=== PATIENT | female | born 1955 | race Caucasian/White ===

== ENCOUNTER 2018-01-15 09:34 | Inpatient (IN) | payer BC ==
[2018-01-15] MEDS ORDERED: SODIUM CHLORIDE 0.9% 1000 ML INFUS.BAG IV ONE (10:01)
[2018-01-15 10:34] LABS: BASO % 0.1 % (0-2.0); HEMATOCRIT 33.6 % (32.4-45.2); HEMOGLOBIN 11.1 GM/dL (10.7-15.3); MEAN CELL VOLUME 90.9 fl (80-96); MEAN PLT VOLUME 8.4 fl (7.5-11.1); MONO % 5.6 % (3.8-10.2); NEUT % 90.3 % (42.8-82.8); PLATELET COUNT 208 K/MM3 (134-434); RBC 3.69 M/mm3 (3.60-5.2); WHITE BLOOD COUNT 16.1 K/mm3 (4.0-10.0)
[2018-01-15 10:38] LABS: VENOUS PC02 41.6 mmHg (38-52); VENOUS PH 7.38 (7.32-7.42); VENOUS PO2 22.2 mmHg (28-48)
[2018-01-15 10:50] LABS: INR 1.18 (0.83-1.09); PROTHROMBIN TIME (PATIENT) 13.3 SEC (9.7-13.0)
[2018-01-15 10:52] LABS: ACTIVATED PTT 29.2 SECONDS (25.2-36.5)
[2018-01-15 10:55] LABS: ALK PHOS 83 U/L (45-117); ANION GAP 10 MMOL/L (8-16); BILIRUBIN,TOTAL 0.7 mg/dL (0.2-1.0); BLOOD UREA NITROGEN 54 mg/dL (7-18); CALCIUM 8.2 mg/dL (8.5-10.1); CHLORIDE 96 mmol/L (98-107); CO2 24 mmol/L (21-32); CREATININE 2.6 mg/dL (0.55-1.02); GLUCOSE,RANDOM 132 mg/dL (74-106); POTASSIUM 4.3 mmol/L (3.5-5.1); SGOT/AST 19 U/L (15-37); SGPT/ALT 21 U/L (12-78); SODIUM 130 mmol/L (136-145); TOT PROT 6.5 g/dl (6.4-8.2)
[2018-01-15] MEDS ORDERED: ACETAMINOPHEN 1000 MG/100 ML VIAL (NON FORMULARY) IVPB ONE (11:20)
[2018-01-15] MEDS ORDERED: ACETAMINOPHEN INJECTION 100 ML IVPB ONE (11:23)
--- NOTE | 2018-01-15 12:05 | PDOC ---
History of Present Illness <HemaChas - Last Filed: 01/15/18 14:08> - General History Source: Patient Exam Limitations: No Limitations - History of Present Illness Initial Comments: 01/15/18 12:15 The patient is a 62 year old female with past medical history of hypertension who presents to the ED with complaints of low grade fever, weakness, headache and diffuse body aches for the past 4 days. She denies any associated lightheadedness, dizziness, cough, shortness of breath, chest pain, or urinary complaints. She denies any recent travel. Denies any sick contacts. Allergies: NKDA Social: Denies any drug, alcohol, or tobacco use. PCP: Dr. Welsh <Tamera Kaur - Last Filed: 01/15/18 14:12> - General Chief Complaint: Weakness Stated Complaint: WEAKNESS Time Seen by Provider: 01/15/18 10:08 Past History - Past Medical History COPD: No Diabetes: Yes (PRE-DIABETIC) HTN: Yes Psychiatric Problems: Yes - Suicide/Smoking/Psychosocial Hx Smoking History: Former smoker Have you smoked in the past 12 months: No If you are a former smoker, when did you quit?: 15 YEARS AGO Information on smoking cessation initiated: No Hx Alcohol Use: No Drug/Substance Use Hx: No Substance Use Type: None Hx Substance Use Treatment: No <Chas Garrido - Last Filed: 01/15/18 14:08> <Tamera Kaur - Last Filed: 01/15/18 14:12> - Past Medical History Allergies/Adverse Reactions: Allergies Allergy/AdvReac Type Severity Reaction Status Date / Time No Known Allergies Allergy Verified 01/15/18 09:47 Home Medications: Ambulatory Orders Losartan Potassium [Cozaar -] 25 mg PO DAILY #30 tablet 11/03/14 Quetiapine Fumarate [Seroquel -] 25 mg PO HS #30 tablet 11/04/14 Review of Systems - Review of Systems Constitutional: Yes: Chills, Fever, Night Sweats. No: Unintentional Wgt. Loss HEENTM: No: Ear Pain, Nose Congestion, Throat Pain, Throat Swelling Respiratory: No: Cough, Shortness of Breath Cardiac (ROS): No: Chest Pain ABD/GI: No: Diarrhea, Nausea, Vomiting : Yes: Frequency. No: Burning, Dysuria, Flank Pain, Hematuria Musculoskeletal: Yes: Muscle Pain Integumentary: No: Rash Neurological: No: Headache, Weakness All Other Systems: Reviewed and Negative <Chas Garrido - Last Filed: 01/15/18 14:08> *Physical Exam - Vital Signs Last Vital Signs Temp Pulse Resp BP Pulse Ox 100.3 F H 83 18 100/47 97 01/15/18 10:53 01/15/18 11:14 01/15/18 11:14 01/15/18 11:14 01/15/18 09:39 <Chas Garrido - Last Filed: 01/15/18 14:08> - Vital Signs Last Vital Signs Temp Pulse Resp BP Pulse Ox 100.3 F H 83 18 100/47 97 01/15/18 10:53 01/15/18 11:14 01/15/18 11:14 01/15/18 11:14 01/15/18 09:39 - Physical Exam Comments: 01/15/18 12:15 GENERAL: The patient is awake, alert, and fully oriented, in no acute distress. HEAD: Normal with no signs of trauma. EYES: Pupils equal, round and reactive to light, extraocular movements intact, sclera anicteric, slight left conjunctival discharge, ENT: Ears normal, nares patent, oropharynx clear without exudates. Moist mucous membranes. NECK: Normal range of motion, supple without lymphadenopathy, JVD, or masses. LUNGS: Breath sounds equal, clear to auscultation bilaterally. No wheeze/ crackles. HEART: Regular rate and rhythm, normal S1 and S2 without murmur or rub. ABDOMEN: Soft/nontender/nondistended. BS wnl. No guarding or rebound. No palpable masses. No hepatosplenomegaly. EXTREMITIES: Normal range of motion, no edema. No clubbing or cyanosis. No cords, erythema, or tenderness. NEUROLOGICAL: Cranial nerves II through XII grossly intact. Normal speech, normal gait. PSYCH: Normal mood, normal affect. SKIN: Warm, Dry, normal turgor, no rashes or lesions noted. <VincentTamera - Last Filed: 01/15/18 14:12> Heart Score/ECG Review #1 ECG reviewed & interpreted by me at: 10:12 General ECG Interpretation: Sinus Rhythm, Normal Rate (95), Normal Intervals ( qtc 507, LBBB with QRS 158), No acute ischemic changes Compared to previous ECG there are: No significant change (10/2014) <Chas Garrido - Last Filed: 01/15/18 14:08> ED Treatment Course - LABORATORY CBC & Chemistry Diagram: 01/15/18 10:05 01/15/18 10:05 - ADDITIONAL ORDERS Additional order review: Laboratory Results 01/15/18 01/15/18 01/15/18 10:05 10:05 10:05 PT with INR INR PTT (Actin FS) VBG pH POC VBG pCO2 POC VBG pO2 Mixed VBG HCO3 Sodium 130 L Potassium 4.3 Chloride 96 L Carbon Dioxide 24 Anion Gap 10 BUN 54 H Creatinine 2.6 H Creat Clearance w eGFR 18.53 Random Glucose 132 H Lactic Acid 1.6 Calcium 8.2 L Total Bilirubin 0.7 AST 19 ALT 21 Alkaline Phosphatase 83 Troponin I Cancelled < 0.02 Total Protein 6.5 Albumin 3.0 L 01/15/18 01/15/18 10:05 10:05 PT with INR 13.30 H INR 1.18 H PTT (Actin FS) 29.2 VBG pH 7.38 POC VBG pCO2 41.6 POC VBG pO2 22.2 L Mixed VBG HCO3 23.7 Sodium Potassium Chloride Carbon Dioxide Anion Gap BUN Creatinine Creat Clearance w eGFR Random Glucose Lactic Acid Calcium Total Bilirubin AST ALT Alkaline Phosphatase Troponin I Total Protein Albumin 01/15/18 10:05 RBC 3.69 MCV 90.9 MCHC 33.0 RDW 15.0 MPV 8.4 Neutrophils % 90.3 H Lymphocytes % 4.0 L D Monocytes % 5.6 Eosinophils % 0.0 D Basophils % 0.1 - Medications Given in the ED: ED Medications Discontinued Medications Generic Name Dose Route Start Last Admin Trade Name Freq PRN Reason Stop Dose Admin Acetaminophen 1,000 mg 01/15/18 11:20 01/15/18 11:26 Ofirmev Injection - IVPB 01/15/18 11:21 1,000 mg ONCE ONE Administration Sodium Chloride 2,000 ml 01/15/18 10:01 01/15/18 10:31 Normal Saline - IV 01/15/18 10:02 2,000 ml ONCE ONE Administration <Chas Garrido - Last Filed: 01/15/18 14:08> - LABORATORY CBC & Chemistry Diagram: 01/15/18 10:05 01/15/18 10:05 - ADDITIONAL ORDERS Additional order review: Laboratory Results 01/15/18 01/15/18 01/15/18 10:05 10:05 10:05 PT with INR INR PTT (Actin FS) VBG pH POC VBG pCO2 POC VBG pO2 Mixed VBG HCO3 Sodium 130 L Potassium 4.3 Chloride 96 L Carbon Dioxide 24 Anion Gap 10 BUN 54 H Creatinine 2.6 H Creat Clearance w eGFR 18.53 Random Glucose 132 H Lactic Acid 1.6 Calcium 8.2 L Total Bilirubin 0.7 AST 19 ALT 21 Alkaline Phosphatase 83 Troponin I Cancelled < 0.02 Total Protein 6.5 Albumin 3.0 L 01/15/18 01/15/18 10:05 10:05 PT with INR 13.30 H INR 1.18 H PTT (Actin FS) 29.2 VBG pH 7.38 POC VBG pCO2 41.6 POC VBG pO2 22.2 L Mixed VBG HCO3 23.7 Sodium Potassium Chloride Carbon Dioxide Anion Gap BUN Creatinine Creat Clearance w eGFR Random Glucose Lactic Acid Calcium Total Bilirubin AST ALT Alkaline Phosphatase Troponin I Total Protein Albumin 01/15/18 10:05 RBC 3.69 MCV 90.9 MCHC 33.0 RDW 15.0 MPV 8.4 Neutrophils % 90.3 H Lymphocytes % 4.0 L D Monocytes % 5.6 Eosinophils % 0.0 D Basophils % 0.1 - RADIOLOGY Radiograph Interpretation: 01/15/18 12:45 Chest x-ray as reviewed by Dr. Campbell reports poor inspiratory effort, possible mild cardiomegaly, no acute intrathoracic abnormality seen. - Medications Given in the ED: ED Medications Discontinued Medications Generic Name Dose Route Start Last Admin Trade Name Freq PRN Reason Stop Dose Admin Acetaminophen 1,000 mg 01/15/18 11:20 01/15/18 11:26 Ofirmev Injection - IVPB 01/15/18 11:21 1,000 mg ONCE ONE Administration Sodium Chloride 2,000 ml 01/15/18 10:01 01/15/18 10:31 Normal Saline - IV 01/15/18 10:02 2,000 ml ONCE ONE Administration <Tamera Kaur - Last Filed: 01/15/18 14:12> Medical Decision Making - Critical Care Time Total Critical Care Time (minutes): 30 Critical Care Statement: The care of this patient involved high complexity decision making to prevent further life threatening deterioration of the patient 's condition and/or to evaluate & treat vital organ system(s) failure or risk of failure. - Medical Decision Making 01/15/18 12:07 A portion of this note was documented by scribe services under my direction. I have reviewed the details of the note, within reason, and agree with the documentation with the following case summary and management plan written by me. 62-year-old female with history of hypertension presents with four-day complaint of myalgias, fevers/chills, generalized weakness. No focal pain or complaints, no recent travel, no rashes noted, no sick contacts. Low-grade temp of 100.3, vital signs are otherwise normal Generally well-appearing and in no distress, small left conjunctival discharge without erythema or swelling Heart is regular without murmurs, lungs are clear Abdomen benign Neurologically intact without edema No rash, no lymphadenopathy, neck is supple oropharynx is clear 62-year-old female with nonspecific myalgia and fever/chills symptoms for 4 days. No findings consistent with bacterial or focal process, question viral possible influenza. Rule out UTI. Sepsis protocol initiated EKG, chest x-ray IV fluids and Tylenol Flu swab Reassess 01/15/18 12:56 wbc 16 with left shift, hypo-Na, Cl with LUIS ALBERTO on chem, UA pending, CXR clear, flu pending. Proceed with iv fluids, abx pending UA. 01/15/18 13:49 Pt BP went to 80 systolic, improved with normal saline bolus. UA cloudy on straight cath and potential source of infection. Flu negative. Continues to feel weak but well overall, covered empirically with vanc/zosyn for sepsis, accepted for inpatient med/surg by Dr. Justice, covering Dr. Welsh. 01/15/18 14:08 lactate 1.6, UA with 3+ leuk <Chas Garrido - Last Filed: 01/15/18 14:08> - Medical Decision Making 01/15/18 14:[address] to Dr[address] Jhony Justice, case was discussed. Patient will be admitted. <Tamera Kaur - Last Filed: 01/15/18 14:12> *DC/Admit/Observation/Transfer - Discharge Dispostion Decision to Admit order: Yes <Chas Garrido - Last Filed: 01/15/18 14:08> - Attestations Scribe Attestion: 01/15/18 12:16 Documentation prepared by Tamera Kaur, acting as hospital medical assistant for Chas Garrido MD. <Tamera Kaur - Last Filed: 01/15/18 14:12> Diagnosis at time of Disposition: Myalgia Sepsis Qualifiers: Sepsis type: sepsis due to unspecified organism Qualified Code(s): A41.9 - Sepsis, unspecified organism - Discharge Dispostion Condition at time of disposition: Fair - Referrals Referrals: Alfredo Welsh MD [Primary Care Provider] - - Patient Instructions - Post Discharge Activity
[2018-01-15] MEDS ORDERED: SODIUM CHLORIDE 1,000 ML IV ONE ×2 (13:19→14:46)
[2018-01-15] MEDS ORDERED: VANCOMYCIN 1,000 MG in DEXTROSE 5%-WATER - 250 ML IVPB ONE (13:20)
[2018-01-15] MEDS ORDERED: PIPERACILLIN/TAZOB 4.5 GM 4.5 GM in DEXTROSE 5%-WATER 100 ML IVPB ONE (13:20)
[2018-01-15] MEDS ORDERED: PIPERACILLIN/TAZOB 4.5 GM 4.5 GM/100 ML BAG IVPB ONE (13:47)
[2018-01-15] MEDS ORDERED: VANCOMYCIN 1 GRAM (PRE-DOCKED) 1,000 MG/250 ML BAG IVPB ONE (13:47)
[2018-01-15 14:00] LABS: URINE APPEARANCE CLOUDY; URINE BILIRUBIN NEGATIVE (<2.0 mg/dL); URINE COLOR YELLOW; URINE GLUCOSE (UA) NEGATIVE (NEGATIVE); URINE KETONE NEGATIVE (NEGATIVE); URINE NITRITE NEGATIVE (NEGATIVE); URINE UROBILINOGEN NEGATIVE mg/dL (0.2-1.0)
[2018-01-15 14:03] LABS: URINE LEUK ESTERASE 3+ (NEGATIVE); URINE PROTEIN 2+ (NEGATIVE)
[2018-01-15 14:12] LABS: ANISOCYTOSIS 1+; MACROCYTOSIS 0; PLATELET ESTIMATE NORMAL
[2018-01-15 14:34] LABS: EPI CELLS RARE /HPF (FEW); URINE BACTERIA MANY /hpf (NONE SEEN); URINE MUCUS RARE
[2018-01-15 14:43] LABS: URINE HYALINE CAST 13 /lpf
[2018-01-15] MEDS ORDERED: SODIUM CHLORIDE 1,000 ML IV STA (14:45)
--- NOTE | 2018-01-15 15:47 | EKG ---
Test Reason : Blood Pressure : / mmHG Vent. Rate : 095 BPM Atrial Rate : 095 BPM P-R Int : 142 ms QRS Dur : 158 ms QT Int : 404 ms P-R-T Axes : 029 -38 129 degrees QTc Int : 507 ms POOR DATA QUALITY, INTERPRETATION MAY BE ADVERSELY AFFECTED NORMAL SINUS RHYTHM LEFT AXIS DEVIATION LEFT BUNDLE BRANCH BLOCK ABNORMAL ECG WHEN COMPARED WITH ECG OF 02-NOV-2014 09:44, VENT. RATE HAS INCREASED BY 36 BPM T WAVE INVERSION LESS EVIDENT IN LATERAL LEADS Confirmed by COLIN CASTILLO MD ([id number]) on 01/15/2018 3:46:34 PM Referred By: Confirmed By:COLIN CASTILLO MD
[2018-01-15 17:57] VITALS: BMI 32.9
[2018-01-15] MEDS ORDERED: cefTRIAXone SODIUM 1 GM VIAL ONE (18:50)
[2018-01-15] MEDS ORDERED: DEXTROSE 5%-WATER 100 ML IVPB ONE (18:50)
[2018-01-15] MEDS ORDERED: CEFTRIAXONE 1 GM in DEXTROSE 5%-WATER 100 ML IVPB SCH (19:00)
[2018-01-15] MEDS: SODIUM CHLORIDE 1,000 ML IV SCH (19:20)
[2018-01-15] MEDS: ACETAMINOPHEN 325 MG TABLET (FP) PO PRN (19:21)
[2018-01-15] MEDS: HEPARIN NA (PORCINE) 5,000 UNITS/ML 1ML VIAL SQ SCH (21:24)
[2018-01-15] MEDS ORDERED: QUEtiapine FUMARATE 25 MG TABLET (FP) PO SCH (22:00)
[2018-01-16] MEDS: SODIUM CHLORIDE 1,000 ML IV SCH (06:41)
[2018-01-16] MEDS: ACETAMINOPHEN 325 MG TABLET (FP) PO PRN ×2 (07:46→17:57)
[2018-01-16 08:33] LABS: BASO % 0.2 % (0-2.0); EOS % 0.8 % (0-4.5); HEMATOCRIT 29.8 % (32.4-45.2); HEMOGLOBIN 9.8 GM/dL (10.7-15.3); LYMPH % 5.3 % (8-40); MCH 30.2 pg (25.7-33.7); MCHC 32.7 g/dl (32.0-36.0); MEAN CELL VOLUME 92.3 fl (80-96); MEAN PLT VOLUME 8.8 fl (7.5-11.1); MONO % 3.6 % (3.8-10.2); NEUT % 90.1 % (42.8-82.8); PLATELET COUNT 156 K/MM3 (134-434); RBC 3.23 M/mm3 (3.60-5.2); WHITE BLOOD COUNT 19.6 K/mm3 (4.0-10.0)
[2018-01-16] MEDS ORDERED: PIPERACILLIN/TAZOB 2.25 GM 2.25 GM in DEXTROSE 5%-WATER - 50 ML IVPB ONE (08:49)
[2018-01-16 08:56] LABS: CHLORIDE 114 mmol/L (98-107); SODIUM 145 mmol/L (136-145)
[2018-01-16 09:03] LABS: ALK PHOS 105 U/L (45-117); ANION GAP 10 MMOL/L (8-16); BILIRUBIN,TOTAL 0.9 mg/dL (0.2-1.0); BLOOD UREA NITROGEN 39 mg/dL (7-18); CALCIUM 7.3 mg/dL (8.5-10.1); CO2 21 mmol/L (21-32); CREATININE 1.5 mg/dL (0.55-1.02); GLUCOSE,RANDOM 94 mg/dL (74-106); SGOT/AST 29 U/L (15-37); SGPT/ALT 22 U/L (12-78)
--- NOTE | 2018-01-16 10:59 | CON.ID ---
Consult Consult Specialty:: infectious diseases Referred by:: Reason for Consultation:: gm positive bacteremia,uti - History of Present Illness Chief Complaint: werakness,fever History of Present Illness: 62 year old female with past medical history of hypertension and admitted with complaints of low grade fever, weakness, headache and diffuse body aches for the past 4 days. patient denies any other symptoms patient was admitted currently feels very weak and was worked up patient was given vanco and zosyn and admitted to the floor on her work up patient now has blood cx positive as well as urine cx positive - History Source History Provided By: Patient, Medical Record Limitations to Obtaining History: Language Barrier - Past Medical History [employer]ING [employer]MENT: Yes: Migraine Cardio/Vascular: Yes: HTN ...: No Rheumatology: Yes: Other (osteoarthritis) - Alcohol/Substance Use Hx Alcohol Use: No - Smoking History Smoking history: Former smoker Have you smoked in the past 12 months: No If you are a former smoker, when did you quit?: 15 YEARS AGO - Social History Usual Living Arrangement: With Spouse ADL: Independent History of Recent Travel: No Home Medications - Allergies Allergies/Adverse Reactions: Allergies Allergy/AdvReac Type Severity Reaction Status Date / Time No Known Allergies Allergy Verified 01/15/18 09:47 - Home Medications Home Medications: Ambulatory Orders Losartan Potassium [Cozaar -] 25 mg PO DAILY #30 tablet 11/03/14 Quetiapine Fumarate [Seroquel -] 25 mg PO HS #30 tablet 11/04/14 Review of Systems - Review of Systems Constitutional: reports: Fever Eyes: reports: No Symptoms HENT: reports: No Symptoms Neck: reports: No Symptoms Cardiovascular: reports: No Symptoms Respiratory: reports: No Symptoms Gastrointestinal: reports: No Symptoms Genitourinary: reports: No Symptoms Musculoskeletal: reports: No Symptoms Integumentary: reports: No Symptoms Neurological: reports: No Symptoms Endocrine: reports: No Symptoms Hematology/Lymphatic: reports: No Symptoms Psychiatric: reports: No Symptoms Physical Exam Vital Signs: Vital Signs Temperature 98.0 F 01/16/18 09:00 Pulse Rate 75 01/16/18 09:00 Respiratory Rate 17 01/16/18 09:00 Blood Pressure 92/52 01/16/18 09:00 O2 Sat by Pulse Oximetry (%) 100 01/15/18 21:00 Constitutional: Yes: Well Nourished, Calm, Mild Distress Cardiovascular: Yes: Regular Rate and Rhythm Respiratory: Yes: Regular, CTA Bilaterally Gastrointestinal: Yes: Normal Bowel Sounds, Soft Musculoskeletal: Yes: WNL Extremities: Yes: Other Neurological: Yes: Alert, Oriented Psychiatric: Yes: Alert, Oriented Labs: CBC, BMP 01/16/18 08:00 01/16/18 08:00 Imaging - Results Chest X-ray: Report Reviewed, Image Reviewed Assessment/Plan fever weakness uti gm negative bacteremia plan will continue zosyn on the patient will repeat blood cx tomorrow await for identification of the organism rest as per the team
[2018-01-16] MEDS: HEPARIN NA (PORCINE) 5,000 UNITS/ML 1ML VIAL SQ SCH ×2 (11:00→21:32)
--- NOTE | 2018-01-16 11:16 | HP ---
Admitting History and Physical - Primary Care Physician PCP: Alfredo Welsh - Admission History of Present Illness: patient 62-year-old old female admitted to the hospital--when she presented to emergency room secondary to fever and weakness Workup in the emergency room--showed sepsis--likely source Given broad-spectrum antibiotics vancomycin and Zosyn and fluids due to hypotension. patient also found in acute renal failure--- given fluids Ultrasound kidneys also ordered Admitted to the floor Patient seen today on the floor Sitting in the chair feels better but little weak No distress Continued to have low-grade fever Denies chest pain or shortness of breath Denies abdominal pain Denies burning in the urine blood culture and urine culture--- positive for gram-negative bacteremia. patient speaks mainly specialists in [place]--- history taken with the help of nursing staff also I also called patient's pharmacy--- [facility] Patient takes following medications Seroquel--100 mg daily--- patient states not taking anymore nortriptyline--25 mg daily meloxicam--15 mg nadolol 40 mg daily. patient not taking Cozaar. 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 Cardiovascular: Yes: HTN ...: No Rheumatology: Yes: Other (osteoarthritis) - Smoking History Smoking history: Former smoker Have you smoked in the past 12 months: No If you are a former smoker, when did you quit?: 15 YEARS AGO - Alcohol/Substance Use Hx Alcohol Use: No - Social History ADL: Independent History of Recent Travel: No Home Medications - Allergies Allergies/Adverse Reactions: Allergies Allergy/AdvReac Type Severity Reaction Status Date / Time No Known Allergies Allergy Verified 01/15/18 09:47 - Home Medications Home Medications: Ambulatory Orders Losartan Potassium [Cozaar -] 25 mg PO DAILY #30 tablet 11/03/14 Quetiapine Fumarate [Seroquel -] 25 mg PO HS #30 tablet 11/04/14 Family Disease History - Family Disease History Family History: Unremarkable Review of Systems Findings/Remarks: see [place] - Review of Systems Constitutional: reports: Fever, Weakness Eyes: reports: No Symptoms Physical Examination Vital Signs: Vital Signs Temperature 98.0 F 01/16/18 09:00 Pulse Rate 75 01/16/18 09:00 Respiratory Rate 17 01/16/18 09:00 Blood Pressure 92/52 01/16/18 09:00 O2 Sat by Pulse Oximetry (%) 100 01/15/18 21:00 Constitutional: Yes: No Distress Eyes: Yes: Conjunctiva Clear Neck: Yes: Supple Cardiovascular: Yes: Regular Rate and Rhythm Respiratory: Yes: CTA Bilaterally Gastrointestinal: Yes: Soft Edema: No Neurological: Yes: Alert Psychiatric: Yes: Alert Labs: CBC, BMP 01/16/18 08:00 01/16/18 08:00 Imaging - Results EKG: Report Reviewed Problem List - Problems (1) Sepsis Code(s): A41.9 - SEPSIS, UNSPECIFIED ORGANISM (2) Hypotension Code(s): I95.9 - HYPOTENSION, UNSPECIFIED (3) Acute renal failure Code(s): N17.9 - ACUTE KIDNEY FAILURE, UNSPECIFIED Assessment/Plan gram-negative bacteremia Continue antibiotics--Zosyn and continue fluids follow-up labs Kidney function improved Hold meloxicam Holding nadalol Will follow Discussed with ID also
[2018-01-16] MEDS ORDERED: DEXTROSE 5%-WATER - 50 ML IVPB ONE ×2 (11:17→17:56)
[2018-01-16] MEDS: PIPERACILLIN/TAZOB 3.375 GM 3.375 GM in DEXTROSE 5%-WATER - 50 ML IVPB SCH ×2 (11:17→17:56)
[2018-01-16] MEDS ORDERED: PIPERACILLIN/TAZOBACTAM 3.375 GM VIAL IVPB ONE ×2 (11:17→17:56)
[2018-01-16 11:37] LABS: ANISOCYTOSIS 1+; MACROCYTOSIS 0; PLATELET ESTIMATE NORMAL
[2018-01-17] MEDS: ACETAMINOPHEN 325 MG TABLET (FP) PO PRN ×3 (00:07→21:09)
[2018-01-17] MEDS ORDERED: DEXTROSE 5%-WATER - 50 ML IVPB ONE ×2 (01:29→09:28)
[2018-01-17] MEDS ORDERED: PIPERACILLIN/TAZOBACTAM 3.375 GM VIAL IVPB ONE ×2 (01:29→09:28)
[2018-01-17] MEDS: PIPERACILLIN/TAZOB 3.375 GM 3.375 GM in DEXTROSE 5%-WATER - 50 ML IVPB SCH ×2 (01:59→09:31)
[2018-01-17 08:14] LABS: BASO % 0.4 % (0-2.0); EOS % 0.6 % (0-4.5); HEMATOCRIT 31.5 % (32.4-45.2); HEMOGLOBIN 10.4 GM/dL (10.7-15.3); LYMPH % 11.6 % (8-40); MCH 30.5 pg (25.7-33.7); MEAN CELL VOLUME 92.3 fl (80-96); MEAN PLT VOLUME 9.4 fl (7.5-11.1); MONO % 4.5 % (3.8-10.2); NEUT % 82.9 % (42.8-82.8); PLATELET COUNT 162 K/MM3 (134-434); RBC 3.41 M/mm3 (3.60-5.2); RDW 15.6 % (11.6-15.6); WHITE BLOOD COUNT 14.2 K/mm3 (4.0-10.0)
[2018-01-17 08:52] LABS: ALBUMIN 2.1 g/dl (3.4-5.0); ANION GAP 9 MMOL/L (8-16); BLOOD UREA NITROGEN 28 mg/dL (7-18); CALCIUM 7.7 mg/dL (8.5-10.1); CHLORIDE 112 mmol/L (98-107); CO2 21 mmol/L (21-32); GLUCOSE,RANDOM 137 mg/dL (74-106); POTASSIUM 3.9 mmol/L (3.5-5.1); SODIUM 142 mmol/L (136-145)
[2018-01-17 08:57] LABS: ALK PHOS 187 U/L (45-117); BILIRUBIN,TOTAL 0.7 mg/dL (0.2-1.0); CREATININE 1.3 mg/dL (0.55-1.02); SGOT/AST 26 U/L (15-37); SGPT/ALT 24 U/L (12-78); TOT PROT 5.8 g/dl (6.4-8.2)
[2018-01-17] MEDS ORDERED: PT OWN MED DRAWER 7, Y5N ONE (09:27)
[2018-01-17] MEDS: HEPARIN NA (PORCINE) 5,000 UNITS/ML 1ML VIAL SQ SCH ×2 (09:30→21:10)
[2018-01-17] MEDS: NORTRIPTYLINE HCL 25 MG CAPSULE PO SCH (09:31)
--- NOTE | 2018-01-17 12:07 | PN ---
Progress Note, Physician History of Present Illness: Pt seen and examined. Remains weak but starting to feel a bit better. Tmax 99.6F. No rigors. No other specific complaints. - Current Medication List Current Medications: Active Medications Acetaminophen (Tylenol -) 650 mg PO Q6H PRN PRN Reason: PAIN LEVEL 1-5 Last Admin: 01/17/18 09:30 Dose: 650 mg Heparin Sodium (Porcine) (Heparin -) 5,000 unit SQ BID [facility] Last Admin: 01/17/18 09:30 Dose: 5,000 unit Sodium Chloride (Normal Saline -) 1,000 mls @ 125 mls/hr IV [facility]IR [facility] Last Admin: 01/16/18 06:41 Dose: 125 mls/hr Piperacillin Sod/Tazobactam (Sod 3.375 gm/ Dextrose) 50 mls @ 100 mls/hr IVPB Q8H-IV [facility]; Protocol Last Admin: 01/17/18 09:31 Dose: 100 mls/hr Nortriptyline HCl (Pamelor -) 25 mg PO DAILY [facility] Last Admin: 01/17/18 09:31 Dose: 25 mg - Objective Vital Signs: Vital Signs Temperature 98.4 F 01/17/18 10:00 Pulse Rate 85 01/17/18 10:00 Respiratory Rate 20 01/17/18 10:00 Blood Pressure 132/73 01/17/18 10:00 O2 Sat by Pulse Oximetry (%) 98 01/17/18 09:00 Constitutional: Yes: No Distress, Calm Cardiovascular: Yes: Regular Rate and Rhythm Respiratory: Yes: Regular Gastrointestinal: Yes: Normal Bowel Sounds, Soft Genitourinary: Yes: WNL Extremities: Yes: WNL Neurological: Yes: Alert, Oriented Labs: CBC, BMP 01/17/18 07:17 01/17/18 07:17 INR, PTT INR 1.18 (0.83-1.09) H 01/15/18 10:05 Microbiology 01/15/18 13:34 Urine - Urine Clean Catch Urine Culture - Final Escherichia Coli 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 01/15/18 10:05 Blood - Peripheral Venous Blood Culture - Final Escherichia Coli 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 01/15/18 10:05 Blood - Peripheral Venous Blood Culture - Preliminary Non Lactose Fermenting Gnb 01/16/18 12:03 Blood - Peripheral Venous Blood Culture - Preliminary Pending Organism 01/16/18 12:23 Blood - Peripheral Venous Blood Culture - Preliminary Pending Organism 01/15/18 12:10 Nasopharyngeal Swab Influenza Types A,B Antigen - Final 01/15/18 12:10 Nasopharyngeal Swab - Final Problem List - Problems (1) Acute renal failure Code(s): N17.9 - ACUTE KIDNEY FAILURE, UNSPECIFIED (2) Hypotension Code(s): I95.9 - HYPOTENSION, UNSPECIFIED (3) Sepsis Code(s): A41.9 - SEPSIS, UNSPECIFIED ORGANISM Qualifiers: Sepsis type: sepsis due to unspecified organism Qualified Code(s): A41.9 - Sepsis, unspecified organism Assessment/Plan 62 y.o. female with PMH of HTN and OA presented with fever and myalgias Sepsis ESBL E. coli UTI Gram negative Bacteremia Leukocytosis Fever [place] -- d/c Zosyn -- start Ertapenem IV -- renal function improving, currently afebrile -- continue monitor wbc, temperatures -- followup blood cultures -- renal sonogram without acute findings continue monitor vitals
--- NOTE | 2018-01-17 12:07 | PN ---
Progress Note (short form) - Note Progress Note: feels better growing e coli -- esbl repeat culture better bp better afebrile wbc coming down Vital Signs Temp 98.4 F 01/17/18 10:00 Pulse 85 01/17/18 10:00 Resp 20 01/17/18 10:00 BP 132/73 01/17/18 10:00 Pulse Ox 98 01/17/18 09:00 Intake & Output 01/16/18 01/17/18 01/17/18 23:59 11:59 23:59 Intake Total 2690 1999 Balance 2690 1999 Intake: IV 1000 1200 Normal Saline - 1,000 ml 1000 1200 @ 125 mls/hr IV ASDIR [facility] Rx#:[id number] IVPB 50 50 Oral 1640 750 Other: Voiding Method Toilet Incontinent # Unmeasured Voids Void 2 2 Bowel Movement No No # Bowel Movements 0 Active Medications Acetaminophen (Tylenol -) 650 mg PO Q6H PRN PRN Reason: PAIN LEVEL 1-5 Last Admin: 01/17/18 09:30 Dose: 650 mg Heparin Sodium (Porcine) (Heparin -) 5,000 unit SQ BID [facility] Last Admin: 01/17/18 09:30 Dose: 5,000 unit Piperacillin Sod/Tazobactam (Sod 3.375 gm/ Dextrose) 50 mls @ 100 mls/hr IVPB Q8H-IV [facility]; Protocol Last Admin: 01/17/18 09:31 Dose: 100 mls/hr Nortriptyline HCl (Pamelor -) 25 mg PO DAILY [facility] Last Admin: 01/17/18 09:31 Dose: 25 mg CBC, BMP 01/17/18 07:17 01/17/18 07:17 Microbiology 01/15/18 13:34 Urine Culture - Final Urine - Urine Clean Catch Escherichia Coli 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 01/15/18 10:05 Blood Culture - Final Blood - Peripheral Venous Escherichia Coli 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 01/15/18 10:05 Blood Culture - Preliminary Blood - Peripheral Venous Non Lactose Fermenting Gnb 01/16/18 12:03 Blood Culture - Preliminary Blood - Peripheral Venous Pending Organism 01/16/18 12:23 Blood Culture - Preliminary Blood - Peripheral Venous Pending Organism Physical Examination Vital Signs: Vital Signs Temperature 98.0 F 01/16/18 09:00 Pulse Rate 75 01/16/18 09:00 Respiratory Rate 17 01/16/18 09:00 Blood Pressure 92/52 01/16/18 09:00 O2 Sat by Pulse Oximetry (%) 100 01/15/18 21:00 Constitutional: Yes: No Distress. comfortable Eyes: Yes: Conjunctiva Clear Neck: Yes: Supple Cardiovascular: Yes: Regular Rate and Rhythm Respiratory: Yes: CTA Bilaterally Gastrointestinal: Yes: Soft/ non tender Edema: No Neurological: Yes: Alert Psychiatric: Yes: Alert Assessment/Plan gram-negative bacteremia-- e coli Abx - Ertepenam i/d on case esbl precautions continue fluids monitor labs will follow Problem List - Problems (1) Sepsis Code(s): A41.9 - SEPSIS, UNSPECIFIED ORGANISM (2) Hypotension Code(s): I95.9 - HYPOTENSION, UNSPECIFIED (3) Acute renal failure Code(s): N17.9 - ACUTE KIDNEY FAILURE, UNSPECIFIED
[2018-01-17] MEDS: SODIUM CHLORIDE 1,000 ML IV SCH (12:49)
[2018-01-17] MEDS: ERTAPENEM SODIUM 1 GM in SODIUM CHLORIDE 50 ML IVPB SCH (13:37)
[2018-01-17 19:34] LABS: ALBUMIN 2.1 g/dl (3.4-5.0); ANION GAP 11 MMOL/L (8-16); BILIRUBIN,TOTAL 0.6 mg/dL (0.2-1.0); BLOOD UREA NITROGEN 20 mg/dL (7-18); CALCIUM 7.9 mg/dL (8.5-10.1); CHLORIDE 111 mmol/L (98-107); CO2 22 mmol/L (21-32); GLUCOSE,RANDOM 113 mg/dL (74-106); POTASSIUM 3.9 mmol/L (3.5-5.1); SGOT/AST 22 U/L (15-37); SGPT/ALT 23 U/L (12-78); SODIUM 144 mmol/L (136-145)
[2018-01-17 19:36] LABS: ALK PHOS 201 U/L (45-117); TOT PROT 5.7 g/dl (6.4-8.2)
[2018-01-18] MEDS ORDERED: PT OWN MED DRAWER 7, Y5N ONE (09:36)
[2018-01-18] MEDS: ACETAMINOPHEN 325 MG TABLET (FP) PO PRN (10:12)
[2018-01-18] MEDS: ERTAPENEM SODIUM 1 GM in SODIUM CHLORIDE 50 ML IVPB SCH (10:12)
[2018-01-18] MEDS: HEPARIN NA (PORCINE) 5,000 UNITS/ML 1ML VIAL SQ SCH ×2 (10:12→22:21)
[2018-01-18] MEDS: NORTRIPTYLINE HCL 25 MG CAPSULE PO SCH (10:13)
--- NOTE | 2018-01-18 13:44 | PN ---
Progress Note (short form) - Note Progress Note: better comfortable behaviour somewhat odd-- Discussed with pts family-- reports has been diagnosed with Schizophrenia-- never followed Also confirms dont take Seroquel Pt wants Sumvatryptan for headache. temp coming down as well as cbc Vital Signs Temp 99.7 F H 01/18/18 10:00 Pulse 87 01/18/18 10:00 Resp 20 01/18/18 10:00 BP 133/78 01/18/18 10:00 Pulse Ox 98 01/17/18 21:00 Intake & Output 01/17/18 01/18/18 01/18/18 23:59 11:59 23:59 Intake Total 620 1700 300 Output Total 300 Balance 320 1700 300 Intake: IV 1200 Normal Saline - 1,000 ml 1200 @ 100 mls/hr IV [facility] Rx#:[id number] Oral 620 500 300 Output: Urine 300 Void 300 Other: Voiding Method Incontinent Urinal # Unmeasured Voids Void 1 3 2 Bowel Movement No No Active Medications Acetaminophen (Tylenol -) 650 mg PO Q6H PRN PRN Reason: PAIN LEVEL 1-5 Last Admin: 01/18/18 10:12 Dose: 650 mg Heparin Sodium (Porcine) (Heparin -) 5,000 unit SQ BID [facility] Last Admin: 01/18/18 10:12 Dose: 5,000 unit Sodium Chloride (Normal Saline -) 1,000 mls @ 100 mls/hr IV [facility]IR [facility] Last Admin: 01/17/18 12:49 Dose: 100 mls/hr Ertapenem 1 gm/ Sodium (Chloride) 50 mls @ 50 mls/hr IVPB DAILY [facility]; Protocol Last Admin: 01/18/18 10:12 Dose: 50 mls/hr Nortriptyline HCl (Pamelor -) 25 mg PO DAILY [facility] Last Admin: 01/18/18 10:13 Dose: 25 mg CBC, BMP 01/17/18 07:17 01/17/18 18:05 Microbiology 01/16/18 12:23 Blood Culture - Preliminary Blood - Peripheral Venous Non Lactose Fermenting Gnb 01/16/18 12:03 Blood Culture - Preliminary Blood - Peripheral Venous Non Lactose Fermenting Gnb 01/15/18 13:34 Urine Culture - Final Urine - Urine Clean Catch Escherichia Coli Esbl [employer] Foreman 01/15/18 10:05 Blood Culture - Final Blood - Peripheral Venous Escherichia Coli Esbl [employer] Foreman 01/15/18 10:05 Blood Culture - Preliminary Blood - Peripheral Venous Non Lactose Fermenting Gnb Physical Examination Constitutional: Yes: No Distress. comfortable Eyes: Yes: Conjunctiva Clear Neck: Yes: Supple Cardiovascular: Yes: Regular Rate and Rhythm Respiratory: Yes: CTA Bilaterally Gastrointestinal: Yes: Soft/ non tender Edema: No Neurological: Yes: Alert Psychiatric: Yes: Alert Assessment/Plan gram-negative bacteremia-- e coli Abx - Ertepenam esbl precautions continue fluids-- decrease rate monitor labs will follow. Problem List - Problems (1) Sepsis Code(s): A41.9 - SEPSIS, UNSPECIFIED ORGANISM (2) Hypotension Code(s): I95.9 - HYPOTENSION, UNSPECIFIED (3) Acute renal failure Code(s): N17.9 - ACUTE KIDNEY FAILURE, UNSPECIFIED
[2018-01-18] MEDS: SODIUM CHLORIDE 1,000 ML IV SCH (13:51)
[2018-01-18 13:54] LABS: BASO % 0.3 % (0-2.0); EOS % 0.8 % (0-4.5); HEMATOCRIT 29.3 % (32.4-45.2); LYMPH % 16.9 % (8-40); MCH 30.6 pg (25.7-33.7); MCHC 34.3 g/dl (32.0-36.0); MEAN CELL VOLUME 89.3 fl (80-96); MEAN PLT VOLUME 8.6 fl (7.5-11.1); MONO % 8.8 % (3.8-10.2); NEUT % 73.2 % (42.8-82.8); PLATELET COUNT 212 K/MM3 (134-434); RBC 3.28 M/mm3 (3.60-5.2)
[2018-01-18 14:10] LABS: ALBUMIN 1.9 g/dl (3.4-5.0); ANION GAP 8 MMOL/L (8-16); BILIRUBIN,TOTAL 0.7 mg/dL (0.2-1.0); BLOOD UREA NITROGEN 11 mg/dL (7-18); CALCIUM 7.5 mg/dL (8.5-10.1); CHLORIDE 109 mmol/L (98-107); CO2 23 mmol/L (21-32); CREATININE 0.7 mg/dL (0.55-1.02); GLUCOSE,RANDOM 137 mg/dL (74-106); POTASSIUM 3.2 mmol/L (3.5-5.1); SGOT/AST 29 U/L (15-37); SGPT/ALT 23 U/L (12-78); SODIUM 140 mmol/L (136-145); TOT PROT 5.2 g/dl (6.4-8.2)
[2018-01-18 14:11] LABS: ALK PHOS 215 U/L (45-117)
[2018-01-18] MEDS: SUMAtriptan SUCCINATE 50 MG TABLET PO SCH (14:27)
[2018-01-18 15:19] LABS: ACANTHOCYTES 0; ANISOCYTOSIS 0; HELMET CELLS 0; HOWELL-JOLLY BODIES 0; MACROCYTOSIS 0; OVALOCYTE 0; PLATELET ESTIMATE NORMAL; ROULEAU 0; SICKELED CELLS 0; TARGET CELLS 0; TEAR DROP CELLS 0; TOXIC GRANULATION 0
--- NOTE | 2018-01-18 16:07 | PN ---
Progress Note, Physician History of Present Illness: Pt states she is feeling better today. Tmax 99.7F. Has no new complaints. Tolerating antibiotics. - Current Medication List Current Medications: Active Medications Acetaminophen (Tylenol -) 650 mg PO Q6H PRN PRN Reason: PAIN LEVEL 1-5 Last Admin: 01/18/18 10:12 Dose: 650 mg Heparin Sodium (Porcine) (Heparin -) 5,000 unit SQ BID [facility] Last Admin: 01/18/18 10:12 Dose: 5,000 unit Sodium Chloride (Normal Saline -) 1,000 mls @ 100 mls/hr IV [facility]IR [facility] Last Admin: 01/18/18 13:51 Dose: 100 mls/hr Ertapenem 1 gm/ Sodium (Chloride) 50 mls @ 50 mls/hr IVPB DAILY [facility]; Protocol Last Admin: 01/18/18 10:12 Dose: 50 mls/hr Nortriptyline HCl (Pamelor -) 25 mg PO DAILY [facility] Last Admin: 01/18/18 10:13 Dose: 25 mg Sumatriptan Succinate (Imitrex -) 50 mg PO DAILY [facility] Last Admin: 01/18/18 14:27 Dose: 50 mg - Objective Vital Signs: Vital Signs Temperature 98.2 F 01/18/18 14:09 Pulse Rate 84 01/18/18 14:09 Respiratory Rate 20 01/18/18 10:00 Blood Pressure 146/71 01/18/18 14:09 O2 Sat by Pulse Oximetry (%) 98 01/17/18 21:00 Constitutional: Yes: No Distress, Calm Neck: Yes: Supple Cardiovascular: Yes: Regular Rate and Rhythm Respiratory: Yes: Regular Gastrointestinal: Yes: Normal Bowel Sounds, Soft Genitourinary: Yes: WNL Extremities: Yes: WNL Psychiatric: Yes: Alert, Oriented Labs: CBC, BMP 01/18/18 13:42 01/18/18 13:42 INR, PTT INR 1.18 (0.83-1.09) H 01/15/18 10:05 Microbiology 01/16/18 12:23 Blood - Peripheral Venous Blood Culture - Preliminary Non Lactose Fermenting Gnb 01/16/18 12:03 Blood - Peripheral Venous Blood Culture - Preliminary Non Lactose Fermenting Gnb 01/15/18 13:34 Urine - Urine Clean Catch Urine Culture - Final Escherichia Coli Esbl Dispatcher Radio 01/15/18 10:05 Blood - Peripheral Venous Blood Culture - Final Escherichia Coli Esbl Dispatcher Radio 01/15/18 10:05 Blood - Peripheral Venous Blood Culture - Preliminary Non Lactose Fermenting Gnb 01/15/18 12:10 Nasopharyngeal Swab Influenza Types A,B Antigen - Final 01/15/18 12:10 Nasopharyngeal Swab - Final Problem List - Problems (1) Acute renal failure Code(s): N17.9 - ACUTE KIDNEY FAILURE, UNSPECIFIED (2) Hypotension Code(s): I95.9 - HYPOTENSION, UNSPECIFIED (3) Sepsis Code(s): A41.9 - SEPSIS, UNSPECIFIED ORGANISM Qualifiers: Sepsis type: sepsis due to unspecified organism Qualified Code(s): A41.9 - Sepsis, unspecified organism Assessment/Plan 62 y.o. female with PMH of HTN and OA presented with fever and weakness Sepsis ESBL+ E. coli UTI Gram negative Bacteremia Leukocytosis - improved Fever [place] - resolving -- continue Ertapenem -- f/u blood cultures, will repeat -- continue monitor temperatures -- pt appears stable at this time
[2018-01-19 08:19] LABS: BASO % 0.5 % (0-2.0); EOS % 0.6 % (0-4.5); HEMATOCRIT 31.3 % (32.4-45.2); HEMOGLOBIN 10.5 GM/dL (10.7-15.3); LYMPH % 17.3 % (8-40); MCH 30.2 pg (25.7-33.7); MCHC 33.7 g/dl (32.0-36.0); MEAN CELL VOLUME 89.8 fl (80-96); MEAN PLT VOLUME 8.7 fl (7.5-11.1); MONO % 10.1 % (3.8-10.2); NEUT % 71.5 % (42.8-82.8); PLATELET COUNT 236 K/MM3 (134-434); RBC 3.49 M/mm3 (3.60-5.2); WHITE BLOOD COUNT 10.5 K/mm3 (4.0-10.0)
[2018-01-19 08:39] LABS: CHLORIDE 108 mmol/L (98-107); POTASSIUM 3.8 mmol/L (3.5-5.1); SODIUM 144 mmol/L (136-145)
[2018-01-19 08:50] LABS: ALK PHOS 224 U/L (45-117); ANION GAP 10 MMOL/L (8-16); BILIRUBIN,TOTAL 0.8 mg/dL (0.2-1.0); BLOOD UREA NITROGEN 10 mg/dL (7-18); CALCIUM 8.1 mg/dL (8.5-10.1); CO2 26 mmol/L (21-32); CREATININE 0.6 mg/dL (0.55-1.02); GLUCOSE,RANDOM 115 mg/dL (74-106); SGOT/AST 58 U/L (15-37); SGPT/ALT 38 U/L (12-78); TOT PROT 5.4 g/dl (6.4-8.2)
[2018-01-19] MEDS ORDERED: PT OWN MED DRAWER 7, Y5N ONE (09:59)
[2018-01-19] MEDS: HEPARIN NA (PORCINE) 5,000 UNITS/ML 1ML VIAL SQ SCH ×2 (10:00→22:48)
[2018-01-19] MEDS: ERTAPENEM SODIUM 1 GM in SODIUM CHLORIDE 50 ML IVPB SCH (10:00)
[2018-01-19] MEDS: SUMAtriptan SUCCINATE 50 MG TABLET PO SCH (10:00)
[2018-01-19] MEDS: NORTRIPTYLINE HCL 25 MG CAPSULE PO SCH (10:01)
[2018-01-19] MEDS: SODIUM CHLORIDE 1,000 ML IV SCH (10:01)
--- NOTE | 2018-01-19 10:53 | PN ---
Progress Note, Physician History of Present Illness: Pt is doing well. States she feels better. Denies dysuria/suprapubic or flank pain. Tmax 100F - Current Medication List Current Medications: Active Medications Acetaminophen (Tylenol -) 650 mg PO Q6H PRN PRN Reason: PAIN LEVEL 1-5 Last Admin: 01/18/18 10:12 Dose: 650 mg Heparin Sodium (Porcine) (Heparin -) 5,000 unit SQ BID [facility] Last Admin: 01/19/18 10:00 Dose: 5,000 unit Sodium Chloride (Normal Saline -) 1,000 mls @ 100 mls/hr IV [facility]IR [facility] Last Admin: 01/19/18 10:01 Dose: 100 mls/hr Ertapenem 1 gm/ Sodium (Chloride) 50 mls @ 50 mls/hr IVPB DAILY [facility]; Protocol Last Admin: 01/19/18 10:00 Dose: 50 mls/hr Nortriptyline HCl (Pamelor -) 25 mg PO DAILY [facility] Last Admin: 01/19/18 10:01 Dose: 25 mg Sumatriptan Succinate (Imitrex -) 50 mg PO DAILY [facility] Last Admin: 01/19/18 10:00 Dose: 50 mg - Objective Vital Signs: Vital Signs Temperature 100 F H 01/19/18 05:57 Pulse Rate 96 H 01/19/18 05:57 Respiratory Rate 20 01/19/18 05:57 Blood Pressure 151/77 01/19/18 05:57 O2 Sat by Pulse Oximetry (%) 98 01/18/18 21:00 Constitutional: Yes: No Distress, Calm Cardiovascular: Yes: Regular Rate and Rhythm Respiratory: Yes: Regular Gastrointestinal: Yes: Normal Bowel Sounds, Soft Genitourinary: Yes: WNL Extremities: Yes: WNL Neurological: Yes: Alert, Oriented Labs: CBC, BMP 01/19/18 07:25 01/19/18 07:25 INR, PTT INR 1.18 (0.83-1.09) H 01/15/18 10:05 Microbiology 01/16/18 12:03 Blood - Peripheral Venous Blood Culture - Final Escherichia Coli Esbl Abrasive Grader 01/16/18 12:23 Blood - Peripheral Venous Blood Culture - Preliminary Non Lactose Fermenting Gnb 01/15/18 13:34 Urine - Urine Clean Catch Urine Culture - Final Escherichia Coli Esbl Abrasive Grader 01/15/18 10:05 Blood - Peripheral Venous Blood Culture - Final Escherichia Coli Esbl Abrasive Grader 01/15/18 10:05 Blood - Peripheral Venous Blood Culture - Preliminary Non Lactose Fermenting Gnb 01/15/18 12:10 Nasopharyngeal Swab Influenza Types A,B Antigen - Final 01/15/18 12:10 Nasopharyngeal Swab - Final Problem List - Problems (1) Acute renal failure Code(s): N17.9 - ACUTE KIDNEY FAILURE, UNSPECIFIED (2) Hypotension Code(s): I95.9 - HYPOTENSION, UNSPECIFIED (3) Sepsis Code(s): A41.9 - SEPSIS, UNSPECIFIED ORGANISM Qualifiers: Sepsis type: sepsis due to unspecified organism Qualified Code(s): A41.9 - Sepsis, unspecified organism Assessment/Plan 62 y.o. female with PMH of HTN and OA presented with fever and weakness, hypotension Sepsis ESBL+ E. coli UTI/Bacteremia Fever - low grade [place] - resolved -- continue Ertapenem -- f/u repeat blood cultures -- cbc in a.m., wbc mildly elevated since yesterday -- continue monitor temperatures
[2018-01-19 10:56] LABS: ANISOCYTOSIS 2+; MACROCYTOSIS 0; PLATELET ESTIMATE NORMAL
--- NOTE | 2018-01-19 11:35 | PN ---
Progress Note (short form) - Note Progress Note: Comfortable calm denies headache Vital Signs Temp 97.8 F 01/19/18 08:00 Pulse 95 H 01/19/18 08:00 Resp 20 01/19/18 08:00 BP 156/87 01/19/18 08:00 Pulse Ox 95 01/19/18 08:00 Intake & Output 01/18/18 01/18/18 01/19/18 11:59 23:59 11:59 Intake Total 1700 1950 1450 Balance 1700 1950 1450 Intake: IV 1200 1200 1200 Normal Saline - 1,000 ml 1200 1200 1200 @ 100 mls/hr IV [facility]IR [facility] Rx#:[id number] IVPB 50 Oral 500 700 250 Other: Voiding Method Urinal Toilet Incontinent # Unmeasured Voids Void 3 1 3 Bowel Movement No Active Medications Acetaminophen (Tylenol -) 650 mg PO Q6H PRN PRN Reason: PAIN LEVEL 1-5 Last Admin: 01/18/18 10:12 Dose: 650 mg Heparin Sodium (Porcine) (Heparin -) 5,000 unit SQ BID [facility] Last Admin: 01/19/18 10:00 Dose: 5,000 unit Ertapenem 1 gm/ Sodium (Chloride) 50 mls @ 50 mls/hr IVPB DAILY [facility]; Protocol Last Admin: 01/19/18 10:00 Dose: 50 mls/hr Nortriptyline HCl (Pamelor -) 25 mg PO DAILY [facility] Last Admin: 01/19/18 10:01 Dose: 25 mg Sumatriptan Succinate (Imitrex -) 50 mg PO DAILY [facility] Last Admin: 01/19/18 10:00 Dose: 50 mg CBC, BMP 01/19/18 07:25 01/19/18 07:25 Microbiology 01/16/18 12:03 Blood Culture - Final Blood - Peripheral Venous Escherichia Coli Esbl Unattended Ground Sensor Specialist 01/16/18 12:23 Blood Culture - Preliminary Blood - Peripheral Venous Non Lactose Fermenting Gnb Physical Examination Constitutional: Yes: No Distress. comfortable Eyes: Yes: Conjunctiva Clear Neck: Yes: Supple Cardiovascular: Yes: Regular Rate and Rhythm Respiratory: Yes: CTA Bilaterally Gastrointestinal: Yes: Soft/ non tender Edema: No Neurological: Yes: Alert Psychiatric: Yes: Alert Assessment/Plan gram-negative bacteremia-- e coli Abx - Ertepenam esbl precautions d/c fluids f/u cultures/ cbc discharge planning discussed with director of casework department also -- will need atleast 2 week of abx Discussed with i/d also. will follow. Problem List - Problems (1) Sepsis Code(s): A41.9 - SEPSIS, UNSPECIFIED ORGANISM (2) Hypotension Code(s): I95.9 - HYPOTENSION, UNSPECIFIED (3) Acute renal failure Code(s): N17.9 - ACUTE KIDNEY FAILURE, UNSPECIFIED
[2018-01-19] MEDS ORDERED: SUMAtriptan SUCCINATE 50 MG TABLET PO PRN (23:43)
[2018-01-20 08:07] LABS: BASO % 0.9 % (0-2.0); HEMATOCRIT 30.9 % (32.4-45.2); HEMOGLOBIN 10.4 GM/dL (10.7-15.3); MCH 30.4 pg (25.7-33.7); MCHC 33.5 g/dl (32.0-36.0); MEAN CELL VOLUME 90.7 fl (80-96); MEAN PLT VOLUME 8.7 fl (7.5-11.1); MONO % 8.7 % (3.8-10.2); NEUT % 69.4 % (42.8-82.8); PLATELET COUNT 269 K/MM3 (134-434); RDW 15.3 % (11.6-15.6); WHITE BLOOD COUNT 10.4 K/mm3 (4.0-10.0)
[2018-01-20] MEDS: HEPARIN NA (PORCINE) 5,000 UNITS/ML 1ML VIAL SQ SCH ×2 (09:01→21:48)
[2018-01-20] MEDS: ERTAPENEM SODIUM 1 GM in SODIUM CHLORIDE 50 ML IVPB SCH (09:02)
[2018-01-20] MEDS ORDERED: PT OWN MED DRAWER 7, Y5N ONE (09:07)
[2018-01-20] MEDS: NORTRIPTYLINE HCL 25 MG CAPSULE PO SCH (09:11)
[2018-01-20] MEDS ORDERED: PICC LINE 8 ML FLUSH PROTOCOL IVPUSH PRN (12:47)
--- NOTE | 2018-01-20 12:49 | DS ---
Physical Examination Vital Signs: Vital Signs Temperature 97.4 F L 01/20/18 09:00 Pulse Rate 97 H 01/20/18 09:00 Respiratory Rate 18 01/20/18 09:00 Blood Pressure 111/70 01/20/18 09:00 O2 Sat by Pulse Oximetry (%) 96 01/20/18 09:00 Constitutional: Yes: No Distress, Calm Cardiovascular: Yes: Regular Rate and Rhythm Respiratory: Yes: CTA Bilaterally Gastrointestinal: Yes: Normal Bowel Sounds, Soft. No: Tenderness Edema: No Labs: CBC, BMP 01/20/18 06:30 01/19/18 07:25 Discharge Summary Reason For Visit: SEPSIS Current Active Problems Acute renal failure (Acute) Hypotension (Acute) Myalgia (Acute) Sepsis (Acute) Sepsis (Acute) Hospital Course: admitted for fever and weakness, hypotension Sepsis ESBL+ E. coli UTI/Bacteremia Fever - low grade [place] - resolved -- continue Ertapenem- tortal 14 days-- needs 10 days more -- blood cultures negative spoke with ID Condition: Fair - Instructions Referrals: Alfredo Welsh MD [Primary Care Provider] - Disposition: HOME - Home Medications Comprehensive Discharge Medication List: Ambulatory Orders Losartan Potassium [Cozaar -] 25 mg PO DAILY #30 tablet 11/03/14 Quetiapine Fumarate [Seroquel -] 25 mg PO HS #30 tablet 11/04/14 Ertapenem Sodium [Invanz -] 1 gm IVPB DAILY #10 vial 01/20/18
--- NOTE | 2018-01-20 13:50 | PN ---
Progress Note, Physician History of Present Illness: Pt states she feels well. Denies any dysuria, abd or flank pain. Remains afebrile. Tolerating antibiotics. - Current Medication List Current Medications: Active Medications Acetaminophen (Tylenol -) 650 mg PO Q6H PRN PRN Reason: PAIN LEVEL 1-5 Last Admin: 01/18/18 10:12 Dose: 650 mg Heparin Sodium (Porcine) (Heparin -) 5,000 unit SQ BID [facility] Last Admin: 01/20/18 09:01 Dose: 5,000 unit IV Flush (Picc Line Flush) 8 ml IVPUSH PRN PRN PRN Reason: Protocol Ertapenem 1 gm/ Sodium (Chloride) 50 mls @ 50 mls/hr IVPB DAILY [facility]; Protocol Last Admin: 01/20/18 09:02 Dose: 50 mls/hr Nortriptyline HCl (Pamelor -) 25 mg PO DAILY [facility] Last Admin: 01/20/18 09:11 Dose: 25 mg Sumatriptan Succinate (Imitrex -) 50 mg PO Q24H PRN PRN Reason: MIGRAINES - Objective Vital Signs: Vital Signs Temperature 97.4 F L 01/20/18 09:00 Pulse Rate 97 H 01/20/18 09:00 Respiratory Rate 18 01/20/18 09:00 Blood Pressure 111/70 01/20/18 09:00 O2 Sat by Pulse Oximetry (%) 96 01/20/18 09:00 Constitutional: Yes: No Distress, Calm Cardiovascular: Yes: Regular Rate and Rhythm Respiratory: Yes: CTA Bilaterally Gastrointestinal: Yes: Normal Bowel Sounds, Soft Genitourinary: Yes: WNL Extremities: Yes: WNL Neurological: Yes: Alert, Oriented Labs: CBC, BMP 01/20/18 06:30 01/19/18 07:25 INR, PTT INR 1.18 (0.83-1.09) H 01/15/18 10:05 Microbiology 01/16/18 12:23 Blood - Peripheral Venous Blood Culture - Preliminary Non Lactose Fermenting Gnb 01/18/18 17:20 Blood - Peripheral Venous Blood Culture - Preliminary NO GROWTH OBTAINED AFTER 24 HOURS, INCUBATION TO CONTINUE FOR 4 DAYS. 01/18/18 16:50 Blood - Peripheral Venous Blood Culture - Preliminary NO GROWTH OBTAINED AFTER 24 HOURS, INCUBATION TO CONTINUE FOR 4 DAYS. 01/16/18 12:03 Blood - Peripheral Venous Blood Culture - Final Escherichia Coli Esbl Stabilizer Operator 01/15/18 13:34 Urine - Urine Clean Catch Urine Culture - Final Escherichia Coli Esbl Stabilizer Operator 01/15/18 10:05 Blood - Peripheral Venous Blood Culture - Final Escherichia Coli Esbl Stabilizer Operator 01/15/18 10:05 Blood - Peripheral Venous Blood Culture - Preliminary Non Lactose Fermenting Gnb 01/15/18 12:10 Nasopharyngeal Swab Influenza Types A,B Antigen - Final 01/15/18 12:10 Nasopharyngeal Swab - Final Problem List - Problems (1) Acute renal failure Code(s): N17.9 - ACUTE KIDNEY FAILURE, UNSPECIFIED (2) Hypotension Code(s): I95.9 - HYPOTENSION, UNSPECIFIED (3) Sepsis Code(s): A41.9 - SEPSIS, UNSPECIFIED ORGANISM Qualifiers: Sepsis type: sepsis due to unspecified organism Qualified Code(s): A41.9 - Sepsis, unspecified organism Assessment/Plan 62 y.o. female with PMH of HTN and OA presented with fever and weakness, hypotension Sepsis ESBL+ E. coli UTI/Bacteremia Fever - resolved [place] - resolved -- continue Ertapenem x 10 more days -- repeat blood cultures no growth thus far -- currently afebrile, stable case d/w Dr. Maloney
[2018-01-21] MEDS: ACETAMINOPHEN 325 MG TABLET (FP) PO PRN ×2 (07:00→22:56)
[2018-01-21] MEDS ORDERED: PT OWN MED DRAWER 7, Y5N ONE (10:15)
[2018-01-21] MEDS: ERTAPENEM SODIUM 1 GM in SODIUM CHLORIDE 50 ML IVPB SCH (10:20)
[2018-01-21] MEDS: HEPARIN NA (PORCINE) 5,000 UNITS/ML 1ML VIAL SQ SCH ×2 (10:20→22:57)
[2018-01-21] MEDS: NORTRIPTYLINE HCL 25 MG CAPSULE PO SCH (10:21)
--- NOTE | 2018-01-21 13:26 | PN ---
Progress Note, Physician History of Present Illness: Pt remains alert, afebrile. States she feels well. Denies having any specific complaints. Tolerating antibiotics. - Current Medication List Current Medications: Active Medications Acetaminophen (Tylenol -) 650 mg PO Q6H PRN PRN Reason: PAIN LEVEL 1-5 Last Admin: 01/21/18 07:00 Dose: 650 mg Heparin Sodium (Porcine) (Heparin -) 5,000 unit SQ BID [facility] Last Admin: 01/21/18 10:20 Dose: 5,000 unit IV Flush (Picc Line Flush) 8 ml IVPUSH PRN PRN PRN Reason: Protocol Ertapenem 1 gm/ Sodium (Chloride) 50 mls @ 50 mls/hr IVPB DAILY [facility]; Protocol Last Admin: 01/21/18 10:20 Dose: 50 mls/hr Nortriptyline HCl (Pamelor -) 25 mg PO DAILY [facility] Last Admin: 01/21/18 10:21 Dose: 25 mg Sumatriptan Succinate (Imitrex -) 50 mg PO Q24H PRN PRN Reason: MIGRAINES - Objective Vital Signs: Vital Signs Temperature 98.4 F 01/21/18 09:00 Pulse Rate 105 H 01/21/18 09:00 Respiratory Rate 18 01/21/18 09:00 Blood Pressure 130/74 01/21/18 09:00 O2 Sat by Pulse Oximetry (%) 96 01/21/18 09:00 Constitutional: Yes: No Distress, Calm Cardiovascular: Yes: Regular Rate and Rhythm Respiratory: Yes: Regular Gastrointestinal: Yes: Normal Bowel Sounds, Soft, Abdomen, Obese Genitourinary: Yes: WNL Integumentary: Yes: WNL Neurological: Yes: Alert Labs: CBC, BMP 01/20/18 06:30 01/19/18 07:25 INR, PTT INR 1.18 (0.83-1.09) H 01/15/18 10:05 Microbiology 01/18/18 17:20 Blood - Peripheral Venous Blood Culture - Preliminary NO GROWTH OBTAINED AFTER 48 HOURS, INCUBATION TO CONTINUE FOR 3 DAYS. 01/18/18 16:50 Blood - Peripheral Venous Blood Culture - Preliminary NO GROWTH OBTAINED AFTER 48 HOURS, INCUBATION TO CONTINUE FOR 3 DAYS. 01/16/18 12:23 Blood - Peripheral Venous Blood Culture - Preliminary Non Lactose Fermenting Gnb 01/16/18 12:03 Blood - Peripheral Venous Blood Culture - Final Escherichia Coli Esbl Entry Engineer 01/15/18 13:34 Urine - Urine Clean Catch Urine Culture - Final Escherichia Coli Esbl Entry Engineer 01/15/18 10:05 Blood - Peripheral Venous Blood Culture - Final Escherichia Coli Esbl Entry Engineer 01/15/18 10:05 Blood - Peripheral Venous Blood Culture - Preliminary Non Lactose Fermenting Gnb 01/15/18 12:10 Nasopharyngeal Swab Influenza Types A,B Antigen - Final 01/15/18 12:10 Nasopharyngeal Swab - Final Problem List - Problems (1) Acute renal failure Code(s): N17.9 - ACUTE KIDNEY FAILURE, UNSPECIFIED (2) Hypotension Code(s): I95.9 - HYPOTENSION, UNSPECIFIED (3) Sepsis Code(s): A41.9 - SEPSIS, UNSPECIFIED ORGANISM Qualifiers: Sepsis type: sepsis due to unspecified organism Qualified Code(s): A41.9 - Sepsis, unspecified organism Assessment/Plan 62 y.o. female with PMH of HTN and OA presented with fever and weakness, hypotension Sepsis ESBL+ E. coli UTI/Bacteremia Fever - resolved [place] - resolved -- continue Ertapenem x 9 more days to complete total 14 day course -- repeat blood cultures negative -- currently afebrile, stable
--- NOTE | 2018-01-21 13:38 | PN ---
Progress Note (short form) - Note Progress Note: no complaints feels well Vital Signs - 24 hr 01/20/18 01/20/18 01/20/18 15:25 18:00 21:00 Temperature 98.1 F 97.9 F Pulse Rate 89 101 H Respiratory 18 20 Rate Blood Pressure 143/88 127/73 O2 Sat by Pulse 95 Oximetry (%) 01/20/18 01/21/18 01/21/18 23:00 06:00 09:00 Temperature 97.4 F L 97.4 F L 98.4 F Pulse Rate 92 H 87 105 H Respiratory 18 18 18 Rate Blood Pressure 147/79 144/75 130/74 O2 Sat by Pulse 96 Oximetry (%) Current Medications Generic Name Dose Route Start Last Admin Trade Name Freq PRN Reason Stop Dose Admin Acetaminophen 650 mg 01/15/18 18:33 01/21/18 07:00 Tylenol - PO 650 mg Q6H PRN Administration PAIN LEVEL 1-5 Heparin Sodium (Porcine) 5,000 unit 01/15/18 22:00 01/21/18 10:20 Heparin - SQ 5,000 unit BID [facility] Administration IV Flush 8 ml 01/20/18 12:47 Picc Line Flush IVPUSH PRN PRN Protocol Ertapenem 1 gm/ Sodium 50 mls @ 50 mls/hr 01/17/18 12:15 01/21/18 10:20 Chloride IVPB 50 mls/hr DAILY [facility] Administration Protocol Nortriptyline HCl 25 mg 01/17/18 10:00 01/21/18 10:21 Pamelor - PO 25 mg DAILY [facility] Administration Sumatriptan Succinate 50 mg 01/19/18 23:43 Imitrex - PO Q24H PRN MIGRAINES S1 S2 RRR' Lungs clear Abd- soft , NT No edema PLAN for IV Ertapenum x 10 days more continue with current meds stable for dc awaiting transfer today
[2018-01-22] MEDS ORDERED: PT OWN MED DRAWER 7, Y5N ONE (10:11)
[2018-01-22] MEDS: HEPARIN NA (PORCINE) 5,000 UNITS/ML 1ML VIAL SQ SCH (10:12)
[2018-01-22] MEDS: ERTAPENEM SODIUM 1 GM in SODIUM CHLORIDE 50 ML IVPB SCH (10:13)
[2018-01-22] MEDS: NORTRIPTYLINE HCL 25 MG CAPSULE PO SCH (10:13)
--- NOTE | 2018-01-22 11:45 | PN ---
Progress Note, Physician History of Present Illness: Pt is afebrile. Denies abd pain/dysuria. Remains afebrile. No specific complaints expressed. - Current Medication List Current Medications: Active Medications Acetaminophen (Tylenol -) 650 mg PO Q6H PRN PRN Reason: PAIN LEVEL 1-5 Last Admin: 01/21/18 22:56 Dose: 650 mg Heparin Sodium (Porcine) (Heparin -) 5,000 unit SQ BID [facility] Last Admin: 01/22/18 10:12 Dose: 5,000 unit IV Flush (Picc Line Flush) 8 ml IVPUSH PRN PRN PRN Reason: Protocol Ertapenem 1 gm/ Sodium (Chloride) 50 mls @ 50 mls/hr IVPB DAILY [facility]; Protocol Last Admin: 01/22/18 10:13 Dose: 50 mls/hr Nortriptyline HCl (Pamelor -) 25 mg PO DAILY [facility] Last Admin: 01/22/18 10:13 Dose: 25 mg Sumatriptan Succinate (Imitrex -) 50 mg PO Q24H PRN PRN Reason: MIGRAINES Last Admin: 01/22/18 06:45 Dose: 50 mg - Objective Vital Signs: Vital Signs Temperature 98.5 F 01/22/18 06:00 Pulse Rate 98 H 01/22/18 06:00 Respiratory Rate 20 01/22/18 06:00 Blood Pressure 145/73 01/22/18 06:00 O2 Sat by Pulse Oximetry (%) 96 01/21/18 21:00 Constitutional: Yes: No Distress Cardiovascular: Yes: Regular Rate and Rhythm Respiratory: Yes: Regular Gastrointestinal: Yes: Normal Bowel Sounds, Soft Genitourinary: Yes: WNL Integumentary: Yes: WNL Neurological: Yes: Alert Labs: CBC, BMP 01/20/18 06:30 01/19/18 07:25 INR, PTT INR 1.18 (0.83-1.09) H 01/15/18 10:05 Problem List - Problems (1) Acute renal failure Code(s): N17.9 - ACUTE KIDNEY FAILURE, UNSPECIFIED (2) Hypotension Code(s): I95.9 - HYPOTENSION, UNSPECIFIED (3) Sepsis Code(s): A41.9 - SEPSIS, UNSPECIFIED ORGANISM Qualifiers: Sepsis type: sepsis due to unspecified organism Qualified Code(s): A41.9 - Sepsis, unspecified organism Assessment/Plan 62 y.o. female with PMH of HTN and OA presented with fever and weakness, hypotension Sepsis ESBL+ E. coli UTI/Bacteremia Fever - resolved [place] - resolved -- continue Ertapenem x 8 more days -- last blood cultures negative -- currently afebrile, stable tolerating antibiotics
--- NOTE | 2018-01-22 12:46 | PN ---
Progress Note (short form) - Note Progress Note: no complaints feels well Vital Signs - 24 hr 01/21/18 01/21/18 01/22/18 16:24 21:00 06:00 Temperature 98.5 F 98.5 F Pulse Rate 108 H 98 H Respiratory 22 20 Rate Blood Pressure 140/78 145/73 O2 Sat by Pulse 96 Oximetry (%) Current Medications Generic Name Dose Route Start Last Admin Trade Name Freq PRN Reason Stop Dose Admin Acetaminophen 650 mg 01/15/18 18:33 01/21/18 22:56 Tylenol - PO 650 mg Q6H PRN Administration PAIN LEVEL 1-5 Heparin Sodium (Porcine) 5,000 unit 01/15/18 22:00 01/22/18 10:12 Heparin - SQ 5,000 unit BID [facility] Administration IV Flush 8 ml 01/20/18 12:47 Picc Line Flush IVPUSH PRN PRN Protocol Ertapenem 1 gm/ Sodium 50 mls @ 50 mls/hr 01/17/18 12:15 01/22/18 10:13 Chloride IVPB 50 mls/hr DAILY [facility] Administration Protocol Nortriptyline HCl 25 mg 01/17/18 10:00 01/22/18 10:13 Pamelor - PO 25 mg DAILY [facility] Administration Sumatriptan Succinate 50 mg 01/19/18 23:43 01/22/18 06:45 Imitrex - PO 50 mg Q24H PRN Administration MIGRAINES S1 S2 RRR' Lungs clear Abd- soft , NT No edema PLAN for IV Ertapenum x 8days more continue with current meds stable for dc awaiting transfer today
[2018-01-23] MEDS ORDERED: PT OWN MED DRAWER 7, Y5N ONE (09:46)
[2018-01-23 09:49] VITALS: BP 117/72; PULSE 104; TEMP 98.6
[2018-01-23] MEDS: ERTAPENEM SODIUM 1 GM in SODIUM CHLORIDE 50 ML IVPB SCH (09:56)
[2018-01-23] MEDS: NORTRIPTYLINE HCL 25 MG CAPSULE PO SCH (09:56)
--- NOTE | 2018-01-23 11:25 | PN ---
Progress Note (short form) - Note Progress Note: Comfortable chart reviewed afebrile no complains insurance refused [facility]-- pt to go home with i/v infusion Discussed with senior case manager/ pt [facility] infusion Vital Signs Temp 98.6 F 01/23/18 09:00 Pulse 104 H 01/23/18 09:00 Resp 20 01/23/18 09:00 BP 117/72 01/23/18 09:00 Pulse Ox 97 01/22/18 21:00 Intake & Output 01/22/18 01/22/18 01/23/18 11:59 23:59 11:59 Intake Total 250 1050 Balance 250 1050 Weight 198 lb Intake: IVPB 50 Oral 250 1000 Other: Voiding Method Toilet Toilet Toilet # Unmeasured Voids Void 2 1 3 Bowel Movement No No No # Bowel Movements 0 Height 5 ft 5 in Body Mass Index (BMI) 32.9 Active Medications Acetaminophen (Tylenol -) 650 mg PO Q6H PRN PRN Reason: PAIN LEVEL 1-5 Last Admin: 01/21/18 22:56 Dose: 650 mg IV Flush (Picc Line Flush) 8 ml IVPUSH PRN PRN PRN Reason: Protocol Last Admin: 01/22/18 17:33 Dose: 8 ml Ertapenem 1 gm/ Sodium (Chloride) 50 mls @ 50 mls/hr IVPB DAILY SUMMER; Protocol Last Admin: 01/23/18 09:56 Dose: 50 mls/hr Nortriptyline HCl (Pamelor -) 25 mg PO DAILY SUMMER Last Admin: 01/23/18 09:56 Dose: 25 mg Sumatriptan Succinate (Imitrex -) 50 mg PO Q24H PRN PRN Reason: MIGRAINES Last Admin: 01/22/18 06:45 Dose: 50 mg CBC, BMP 01/20/18 06:30 01/19/18 07:25 Microbiology 01/16/18 12:23 Blood Culture - Final Blood - Peripheral Venous Escherichia Coli Esbl Tile Sprayer 01/15/18 10:05 Blood Culture - Final Blood - Peripheral Venous Escherichia Coli Esbl Tile Sprayer 01/18/18 17:20 Blood Culture - Preliminary Blood - Peripheral Venous NO GROWTH OBTAINED AFTER 96 HOURS, INCUBATION TO CONTINUE FOR 1 DAYS. 01/18/18 16:50 Blood Culture - Preliminary Blood - Peripheral Venous NO GROWTH OBTAINED AFTER 96 HOURS, INCUBATION TO CONTINUE FOR 1 DAYS. Physical S1 S2 RRR' Lungs clear Abd- soft , NT No edema PLAN for IV Ertapenum x 8 days more continue with current meds stable for dc Problem List - Problems (1) Sepsis Code(s): A41.9 - SEPSIS, UNSPECIFIED ORGANISM (2) Hypotension Code(s): I95.9 - HYPOTENSION, UNSPECIFIED (3) Acute renal failure Code(s): N17.9 - ACUTE KIDNEY FAILURE, UNSPECIFIED
--- NOTE | 2018-01-23 12:57 | PN ---
Progress Note, Physician History of Present Illness: Pt remains alert, afebrile. Without specific complaints. - Current Medication List Current Medications: Active Medications Acetaminophen (Tylenol -) 650 mg PO Q6H PRN PRN Reason: PAIN LEVEL 1-5 Last Admin: 01/21/18 22:56 Dose: 650 mg IV Flush (Picc Line Flush) 8 ml IVPUSH PRN PRN PRN Reason: Protocol Last Admin: 01/22/18 17:33 Dose: 8 ml Ertapenem 1 gm/ Sodium (Chloride) 50 mls @ 50 mls/hr IVPB DAILY SUMMER; Protocol Last Admin: 01/23/18 09:56 Dose: 50 mls/hr Nortriptyline HCl (Pamelor -) 25 mg PO DAILY SUMMER Last Admin: 01/23/18 09:56 Dose: 25 mg Sumatriptan Succinate (Imitrex -) 50 mg PO Q24H PRN PRN Reason: MIGRAINES Last Admin: 01/22/18 06:45 Dose: 50 mg - Objective Vital Signs: Vital Signs Temperature 98.6 F 01/23/18 09:00 Pulse Rate 104 H 01/23/18 09:00 Respiratory Rate 20 01/23/18 09:00 Blood Pressure 117/72 01/23/18 09:00 O2 Sat by Pulse Oximetry (%) 97 01/22/18 21:00 Constitutional: Yes: No Distress Cardiovascular: Yes: Regular Rate and Rhythm Respiratory: Yes: Regular Gastrointestinal: Yes: Normal Bowel Sounds, Soft Genitourinary: Yes: WNL Integumentary: Yes: WNL Neurological: Yes: Alert, Oriented Labs: CBC, BMP 01/20/18 06:30 01/19/18 07:25 INR, PTT INR 1.18 (0.83-1.09) H 01/15/18 10:05 Problem List - Problems (1) Acute renal failure Code(s): N17.9 - ACUTE KIDNEY FAILURE, UNSPECIFIED (2) Hypotension Code(s): I95.9 - HYPOTENSION, UNSPECIFIED (3) Sepsis Code(s): A41.9 - SEPSIS, UNSPECIFIED ORGANISM Qualifiers: Sepsis type: sepsis due to unspecified organism Qualified Code(s): A41.9 - Sepsis, unspecified organism Assessment/Plan 62 y.o. female with PMH of HTN and OA presented with fever and weakness, hypotension Sepsis - resolved ESBL+ E. coli UTI/Bacteremia Fever - resolved CLIFTON - resolved -- continue Ertapenem x one more week -- last blood cultures negative -- currently afebrile, stable pt clinically stable at this time
== END 2018-01-23 15:24 | disposition home or self-care (01) | DRG 872 ==
LOC: JER 09:34 → JERBED 13:50 → J6S 16:49
PROVIDERS: ADMIT Internal Medicine; ATTEND Internal Medicine
PROC: 02HV33Z Insertion of Infusion Device into Superior Vena Cava, Percutaneous Approach (ICD-10-PCS; principal; 2018-01-22)
PROC: B518ZZA Fluoroscopy of Superior Vena Cava, Guidance (ICD-10-PCS; 2018-01-22)
PROC: B548ZZA Ultrasonography of Superior Vena Cava, Guidance (ICD-10-PCS; 2018-01-22)
DX: A41.9 Sepsis, unspecified organism (principal); N17.9 Acute kidney failure, unspecified; N39.0 Urinary tract infection, site not specified; E87.1 Hypo-osmolality and hyponatremia; B96.29 Other Escherichia coli [E. coli] as the cause of diseases classified elsewhere; Z16.12 Extended spectrum beta lactamase (ESBL) resistance; I95.9 Hypotension, unspecified; M79.1 Myalgia; R73.03 Prediabetes; Z87.891 Personal history of nicotine dependence; M19.90 Unspecified osteoarthritis, unspecified site
CPT/HCPCS: 36415; 36569; 71045-TC-FY; 76775-TC; 77001-TC-FY; 80053; 81003; 81015; 82803; 83605; 84443; 84484; 85025; 85610; 85730; 87040; 87086; 87186; 87804; 93005; 93010; 97116-GP; 97161-GP; 99284-25; C1751; J0131; J1644; J7030

== ENCOUNTER 2018-02-03 09:36 | Emergency (ER) | payer BC ==
[2018-02-03 09:45] VITALS: BP 159/77; PULSE 89; TEMP 97.8; BMI 33.6
--- NOTE | 2018-02-03 09:57 | PDOC ---
History of Present Illness - General Chief Complaint: PICC Line Insertion Stated Complaint: FOLLOW UP Time Seen by Provider: 02/03/18 09:57 - History of Present Illness Initial Comments: 02/03/18 10:12 The patient is a 62 year old female with a history of HTN, HLD, Pre-diabetes, UTI who presents for PICC line removal. The patient notes that she was recently admitted to the hospital 2-3 weeks ago for sepsis due to UTI. She was discharged with a PICC line for iv antibiotics due to ESBL UTI. The patient reports since completing her course of antibiotics, she has remained asymptomatic and has no complaints currently. She otherwise denies fevers, chills, SOB, chest pain, nausea, vomiting, abdominal pain, or changes with urination or bowel movements. Past History - Past Medical History Allergies/Adverse Reactions: Allergies Allergy/AdvReac Type Severity Reaction Status Date / Time No Known Allergies Allergy Verified 01/15/18 09:47 Home Medications: Ambulatory Orders Losartan Potassium [Cozaar -] 25 mg PO DAILY #30 tablet 11/03/14 Quetiapine Fumarate [Seroquel -] 25 mg PO HS #30 tablet 11/04/14 Ertapenem Sodium [Invanz -] 1 gm IVPB DAILY #10 vial 01/20/18 Cardiac Disorders: Yes (CAD) COPD: No Diabetes: Yes (PRE-DIABETIC) HTN: Yes Psychiatric Problems: Yes - Immunization History Immunization Up to Date: Yes - Suicide/Smoking/Psychosocial Hx Smoking History: Never smoked Have you smoked in the past 12 months: No If you are a former smoker, when did you quit?: 15 YEARS AGO Information on smoking cessation initiated: No Hx Alcohol Use: No Drug/Substance Use Hx: No Substance Use Type: None Hx Substance Use Treatment: No Review of Systems - Review of Systems Comments:: 02/03/18 10:16 Constitutional: No fevers, chills, fatigue, malaise HEENT: No Rhinorrhea, nasal congestion, visual changes Cardiovascular: No chest pain, syncope, palpitations, lightheadedness Respiratory: No Cough, SOB, Hemoptysis, Gastrointestinal: No Abdominal pain, Nausea, Vomiting, Constipation, Diarrhea, Melena Genitourinary: No Dysuria, Frequency, Urgency, Hesitancy, Hematuria, Flank pain Musculoskeletal: No Myalgia, arthralgia Skin: No rashes, itching, bruising, pallor Neurologic: No Headache, Dizziness, Numbness, Weakness, or Tingling Psychiatric: No Hallucinations. No SI or HI *Physical Exam - Vital Signs Last Vital Signs Temp Pulse Resp BP Pulse Ox 97.8 F 89 16 159/77 95 02/03/18 09:41 02/03/18 09:41 02/03/18 09:41 02/03/18 09:41 02/03/18 09:41 - Physical Exam Comments: 02/03/18 10:16 General Appearance: Nourished. No Apparent Distress HEENT: No Pharyngeal Erythema, Tonsillar Exudate, Tonsillar Erythema Neck: No Cervical Lymphadenopathy Respiratory/Chest: Lungs Clear, Normal Breath Sounds. No Crackles, Rales, Rhonchi, Wheezing Cardiovascular: Regular Rhythm, Regular Rate. No Murmur, Gallops, Rubs Gastrointestinal/Abdominal: Normal Bowel Sounds, Soft. No Guarding, Rebound, Tenderness Musculoskeletal: No CVA Tenderness Extremity: PICC line in place in the right upper extremity without surround erythema or tenderness. Normal Capillary Refill Integumentary: Normal Color, Dry, Warm Neurologic: Fully Oriented, Alert, Normal Mood/Affect, Normal Response, Medical Decision Making - Medical Decision Making 02/03/18 10:18 The patient is a 62 year old female with a history of HTN, HLD, Pre-diabetes, UTI who presents for PICC line removal. The patient appears clinically well on exam. We successfully removed the patient's PICC line without complications and hemostasis was obtained. We are comfortable discharging the patient home with primary care provider follow up. We discussed the results, plan, and return precautions with the patient who voiced understanding and is agreeable with the plan. *DC/Admit/Observation/Transfer Diagnosis at time of Disposition: PICC (peripherally inserted central catheter) removal - Discharge Dispostion Disposition: HOME Condition at time of disposition: Stable Decision to Admit order: No - Referrals - Patient Instructions Printed Discharge Instructions: DI for Peripherally Inserted Central Catheter Removal Additional Instructions: Please return to the ER if you experience concerning or worsening symptoms including worsening difficulty breathing, weakness, or chest pain. Please call to schedule a follow up appointment with your primary care provider within 2-3 days to discuss your ER visit and further management of your symptoms. Por favor, regrese a la tanner de emergencias si experimenta problemas o empeoramiento de los sntomas incluyendo empeoramiento de la dificultad respiratoria, debilidad o dolor en el pecho. Por favor llame para programar steve rayray de seguimiento con meier proveedor de cuidado primario dentro de los 2-3 ascencio para discutir meier visita de urgencias y la administracin de kalina sntomas. - Post Discharge Activity
--- NOTE | 2018-02-03 10:16 | PDOC ---
Attending Attestation - Resident Resident Name: Noah Dawson - ED Attending Attestation I have performed the following: I have examined & evaluated the patient, The case was reviewed & discussed with the resident, I agree w/resident's findings & plan, Exceptions are as noted - HPI HPI: 02/03/18 10:20 62 F with h/o HTN, ESBL UTI, presenting for PICC line removal. Completed course of IV abx. No complaints today. - Physicial Exam PE: 02/03/18 10:20 "GENERAL: Awake, alert, and fully oriented, in no acute distress. HEAD: No signs of trauma EYES: PERRLA, EOMI, sclera anicteric, conjunctiva clear ENT: Auricles normal inspection, hearing grossly normal, nares patent, oropharynx clear without exudates. Moist mucosa NECK: Nontender, no stepoffs, Normal ROM, supple, no lymphadenopathy, JVD, or masses LUNGS: Breath sounds equal, clear to auscultation bilaterally. No wheezes, and no crackles HEART: Regular rate and rhythm, normal S1 and S2, no murmurs, rubs or gallops ABDOMEN: Soft, nontender, normoactive bowel sounds. No guarding, no rebound. No masses EXTREMITIES: + PICC line in place RUE, Normal range of motion, no edema. No clubbing or cyanosis. No cords, erythema, or tenderness NEUROLOGICAL: Cranial nerves II through XII intact. 5/5 strength and sensation in all extremities, Normal speech, normal gait, normal cerebellar function SKIN: Warm, Dry, normal turgor, no rashes or lesions noted." - Medical Decision Making 02/03/18 10:21 62 F here for PICC line removal. - PICC line removed with sterile gauze, bleeding controlled with direct pressure Pt is well appearing, with normal vitals. Clinically stable for DC at this time. I discussed the physical exam findings, ancillary test results and final diagnoses with the patient. I answered all of the patient's questions. The patient was satisfied with the care received and felt comfortable with the discharge plan and treatment plan. The patient agrees to follow up with the primary care physician within 24-72 hours.
== END 2018-02-03 10:54 | disposition home or self-care (01) ==
LOC: JER 09:36
DX: Z45.2 Encounter for adjustment and management of vascular access device (principal)
CPT/HCPCS: 99281-25

== ENCOUNTER 2018-02-26 14:40 | Emergency (ER) | payer BC ==
[2018-02-26 14:53] VITALS: BP 152/83; PULSE 78; TEMP 98.6; BMI 35.3
--- NOTE | 2018-02-26 14:53 | PDOC ---
Rapid Medical Evaluation Time Seen by Provider: 02/26/18 14:49 Medical Evaluation: Allergies Allergy/AdvReac Type Severity Reaction Status Date / Time No Known Allergies Allergy Verified 01/15/18 09:47 02/26/18 14:49 The patient complaints of: fell today while waiting for taxi and landed on rt knee. On brief exam: 4 cm linear laceration to rt knee The patient was ordered for: tdap The patient will proceed to the ED Discharge Disposition - Diagnosis Laceration of knee - Referrals - Patient Instructions - Post Discharge Activity
[2018-02-26] MEDS ORDERED: DIPHTH,PERTUSS(ACELL),TET 0.5 ML DISP.SYRIN IM ONE (14:54)
--- NOTE | 2018-02-26 16:40 | PDOC ---
History of Present Illness <Jayshree Matamoros - Last Filed: 02/26/18 18:10> - General History Source: Patient Exam Limitations: Language Barrier ([employer] [id number]) - History of Present Illness Initial Comments: 02/26/18 16:38 HISTORY OF PRESENT ILLNESS: This 63-year-old woman with past medical history of hypertension who presents emergency Department with laceration to right knee status post trip and fall into curb. Patient states she went to step onto a curb when she slipped STRIKING her right patella on the corner of the concrete curb. Patient was immediately ambulatory and presented to the emergency department for evaluation. Patient is unsure when her last tetanus shot was but believes it was greater than 30 years ago. She denies head trauma. No recent travel or sick contacts. PAST MEDICAL HISTORY: see hpi SURGICAL HISTORY: Denies ALLERGIES: No known drug allergies REVIEW OF SYSTEMS General/Constitutional: Denies fever or chills. Denies weakness, weight change. HEENT: Denies change in vision. Denies ear pain or discharge. Denies sore throat. Cardiovascular: Denies chest pain or shortness of breath. Respiratory: Denies cough, wheezing, or hemoptysis. Gastrointestinal: Denies nausea, vomiting, diarrhea or constipation. Denies rectal bleeding. Genitourinary: Denies dysuria, frequency, or change in urination. Musculoskeletal: Denies joint or muscle swelling or pain. Denies neck or back pain. Skin and breasts: Laceration to right knee Neurologic: Denies headache, vertigo, loss of consciousness, or loss of sensation. Psychiatric: Denies depression or anxiety. Endocrine: Denies increased thirst. Denies abnormal weight change. Hematologic/Lymphatic: Denies anemia, easy bleeding, or history of blood clots. Allergic/Immunologic: Denies hives or skin allergy. Denies latex allergy. PHYSICAL EXAM General Appearance: Well-appearing, appropriately dressed. No apparent distress , no intoxication. HEENT: EOMI, PERRLA, normal ENT inspection, normal voice, TMs normal, pharynx normal. No conjunctival pallor. No photophobia, scleral icterus. Neck: Supple. Trachea midline. No tenderness, rigidity, carotid bruit, stridor , lymphadenopathy, or thyromegaly. Respiratory/Chest: Lungs CTAB. No shortness of breath, chest tenderness, respiratory distress, accessory muscle use. No crackles, rales, rhonchi, stridor , wheezing, dullness Cardiovascular: RRR. S1, S2. No JVD, murmur, bradycardia, tachycardia. Vascular Pulses: Dorsalis-Pedis (R): 2+, Dorsalis-Pedis (L): 2+ Gastrointestinal/Abdominal: Normal bowel sounds. Abdomen soft, non-distended. No tenderness or rebound tenderness. No organomegaly, pulsatile mass, guarding, hernia, hepatomegaly, splenomegaly. Lymphatic: No adenopathy, tenderness. Musculoskeletal/Extremities: Normal inspection. FROM of all extremities, normal capillary refill. Pelvis Stable. No CVA tenderness. No tenderness to extremities, pedal edema, swelling, erythema or deformity. Integumentary: 4cm linear superficial laceration to right anterior knee inferior to patella. Ecchymosis distal to injury. Neurologic: medical transcription supervisor II-XII intact. Fully oriented, alert. Appropriate mood/affect. Motor strength 5/5. No appreciable EOM palsy, facial droop or sensory deficit. <Isaac Black - Last Filed: 02/26/18 18:33> - General Chief Complaint: Injury Stated Complaint: FALL/LEG PAIN Time Seen by Provider: 02/26/18 14:49 Past History <Jayshree Matamoros - Last Filed: 02/26/18 18:10> - Past Medical History Cardiac Disorders: Yes (CAD) COPD: No Diabetes: Yes (PRE-DIABETIC) HTN: Yes Psychiatric Problems: Yes - Immunization History Immunization Up to Date: Yes - Suicide/Smoking/Psychosocial Hx Smoking History: Never smoked Have you smoked in the past 12 months: No If you are a former smoker, when did you quit?: 15 YEARS AGO Hx Alcohol Use: No Drug/Substance Use Hx: No Substance Use Type: None Hx Substance Use Treatment: No <Isaac Black - Last Filed: 02/26/18 18:33> - Past Medical History Allergies/Adverse Reactions: Allergies Allergy/AdvReac Type Severity Reaction Status Date / Time No Known Allergies Allergy Verified 02/26/18 14:50 Home Medications: Ambulatory Orders Losartan Potassium [Cozaar -] 25 mg PO DAILY #30 tablet 11/03/14 Quetiapine Fumarate [Seroquel -] 25 mg PO HS #30 tablet 11/04/14 Ertapenem Sodium [Invanz -] 1 gm IVPB DAILY #10 vial 01/20/18 *Physical Exam - Vital Signs Last Vital Signs Temp Pulse Resp BP Pulse Ox 98.6 F 78 18 152/83 95 02/26/18 14:51 02/26/18 14:51 02/26/18 14:51 02/26/18 14:51 02/26/18 14:51 <Jayshree Matamoros - Last Filed: 02/26/18 18:10> - Vital Signs Last Vital Signs Temp Pulse Resp BP Pulse Ox 98.6 F 78 18 152/83 95 02/26/18 14:51 02/26/18 14:51 02/26/18 14:51 02/26/18 14:51 02/26/18 14:51 <Isaac Black - Last Filed: 02/26/18 18:33> ED Treatment Course - Medications Given in the ED: ED Medications Discontinued Medications Generic Name Dose Route Start Last Admin Trade Name Freq PRN Reason Stop Dose Admin Diphtheria/Tetanus/Acell Pertussis 0.5 ml 02/26/18 14:54 02/26/18 17:05 Boostrix - IM 02/26/18 14:55 0.5 ml .ONCE ONE Administration <Jayshree Matamoros - Last Filed: 02/26/18 18:10> Medical Decision Making - Medical Decision Making 02/26/18 16:38 A/P: 63-year-old woman with laceration to right knee 4 cm linear superficial laceration present over the inferior anterior knee No tenderness to palpation of bones of the lower leg, femur or knee Patella is mobile Full flexion and extension of knee against resistance Ambulatory with steady gait X-rays, laceration repair, reassess 02/26/18 18:32 x-rays as read by dr. cohn: No radiographic evidence of acute fracture. Multicompartmental degenerative joint changes are noted Small ossified density seen adjacent to the upper pole of the patella possibly on the basis of tendinopathy or previous injury. Laceration repair performed by David Matamoros. See her note for details. I discussed the physical exam findings, ancillary test results and final diagnoses with the patient. I answered all of the patient's questions. The patient was satisfied with the care received and felt comfortable with the discharge plan and treatment plan. The patient will call their primary care physician within 24 hours to arrange follow-up and will return to the Emergency Department with any new, persistent or worsening symptoms. <Isaac Black - Last Filed: 02/26/18 18:33> *DC/Admit/Observation/Transfer - Discharge Dispostion Decision to Admit order: No <Jayshree Matamoros - Last Filed: 02/26/18 18:10> - Discharge Dispostion Decision to Admit order: No <Isaac Black - Last Filed: 02/26/18 18:33> Diagnosis at time of Disposition: Laceration of knee Qualifiers: Encounter type: initial encounter Laterality: right Qualified Code(s): S81.011A - Laceration without foreign body, right knee, initial encounter - Discharge Dispostion Disposition: HOME Condition at time of disposition: Good - Patient Instructions Additional Instructions: Return to the Emergency Department in 7 days for suture removal. Return before that time for any new/worsening/concerning symptoms including loose sutures, discharge, redness or severe pain.
== END 2018-02-26 18:35 | disposition home or self-care (01) ==
LOC: JERFT 14:40
PROC: 0JQN0ZZ Repair Right Lower Leg Subcutaneous Tissue and Fascia, Open Approach (ICD-10-PCS; principal; 2018-02-26)
PROC: 3E0234Z Introduction of Serum, Toxoid and Vaccine into Muscle, Percutaneous Approach (ICD-10-PCS; 2018-02-26)
DX: S81.011A Laceration without foreign body, right knee, initial encounter (principal); W10.1XXA Fall (on)(from) sidewalk curb, initial encounter; Y93.01 Activity, walking, marching and hiking; Y92.480 Sidewalk as the place of occurrence of the external cause; Y99.8 Other external cause status; I25.10 Atherosclerotic heart disease of native coronary artery without angina pectoris; I10 Essential (primary) hypertension; R73.03 Prediabetes
CPT/HCPCS: 73562-TC-RT-FY; 90715; 99281-25

== ENCOUNTER 2018-03-04 12:20 | Emergency (ER) | payer BC ==
[2018-03-04 12:32] VITALS: BP 134/80; PULSE 78; TEMP 98.9; BMI 35.3
--- NOTE | 2018-03-04 13:08 | PDOC ---
History of Present Illness - General Chief Complaint: Suture/Staple Removal(Here) Stated Complaint: STITCHES REMOVAL Time Seen by Provider: 03/04/18 13:04 - History of Present Illness Initial Comments: 03/04/18 13:07 63-year-old female presents for suture removal from sutures placed 7 days ago in the right knee. Past History - Past Medical History Allergies/Adverse Reactions: Allergies Allergy/AdvReac Type Severity Reaction Status Date / Time No Known Allergies Allergy Verified 02/26/18 14:50 Home Medications: Ambulatory Orders Quetiapine Fumarate [Seroquel -] 25 mg PO HS #30 tablet 11/04/14 Nadolol [Corgard -] 40 mg PO DAILY 03/04/18 Cardiac Disorders: Yes (CAD) COPD: No Diabetes: Yes (PRE-DIABETIC) HTN: Yes Psychiatric Problems: Yes - Immunization History Immunization Up to Date: Yes - Suicide/Smoking/Psychosocial Hx Smoking History: Never smoked Have you smoked in the past 12 months: No If you are a former smoker, when did you quit?: 15 YEARS AGO Hx Alcohol Use: No Drug/Substance Use Hx: No Substance Use Type: None Hx Substance Use Treatment: No Review of Systems - Review of Systems All Other Systems: Reviewed and Negative *Physical Exam - Vital Signs Last Vital Signs Temp Pulse Resp BP Pulse Ox 98.9 F 78 16 134/80 98 03/04/18 12:31 03/04/18 12:31 03/04/18 12:31 03/04/18 12:31 03/04/18 12:31 - Physical Exam Comments: 03/04/18 13:07 There is mild erythema without warmth induration or tenderness around the area of the wound. The wound is healing. Medical Decision Making - Medical Decision Making 03/04/18 13:07 The sutures are not ready to come out yet. I have advised her to come back around March 09 she needs to wait till at least that time *DC/Admit/Observation/Transfer Diagnosis at time of Disposition: Visit for wound check - Discharge Dispostion Disposition: HOME Condition at time of disposition: Stable Decision to Admit order: No - Referrals Referrals: Alfredo Welsh MD [Primary Care Provider] - - Patient Instructions Additional Instructions: Return to the emergency room no earlier than March 08 for suture removal unless you have a problem with the knee such as increasing redness drainage or swelling. Or increasing pain. He will take the sutures out on March 08 or if the wound looks healed - Post Discharge Activity
== END 2018-03-04 13:12 | disposition home or self-care (01) ==
LOC: JERFT 12:20
DX: Z48.02 Encounter for removal of sutures (principal)
CPT/HCPCS: 99281-25

== ENCOUNTER 2018-03-13 12:15 | Emergency (ER) | payer OTHER, BC ==
[2018-03-13 12:19] VITALS: BP 160/70; PULSE 76; TEMP 98; BMI 35.3
--- NOTE | 2018-03-13 13:01 | PDOC ---
Suture Removal/Wound Check HPI - History of Present Illness Chief Complaint: Suture/Staple Removal(Here) Stated Complaint: SUTURE/STAPLE REMOVAL Time Seen by Provider: 03/13/18 12:47 History Source: Yes: Patient Exam Limitations: Yes: No Limitations Treated at: [facility] ED - Previous ED Treatment Type of procedure performed on last visit: Yes: Laceration Repair Tetanus Immunization: Yes: Up to Date Antibiotics Prescribed: No - Onset of Previous Treatment Select one - (for the option above): Days (15) Past History - Travel Traveled outside of the country in the last 30 days: No Close contact w/someone who was outside of country & ill: No - Past Medical History Allergies/Adverse Reactions: Allergies Allergy/AdvReac Type Severity Reaction Status Date / Time No Known Allergies Allergy Verified 03/13/18 12:18 Home Medications: Ambulatory Orders Quetiapine Fumarate [Seroquel -] 25 mg PO HS #30 tablet 11/04/14 Nadolol [Corgard -] 40 mg PO DAILY 03/04/18 Cardiac Disorders: Yes (CAD) COPD: No Diabetes: Yes (PRE-DIABETIC) HTN: Yes Psychiatric Problems: Yes - Immunization History Immunization Up to Date: Yes - Suicide/Smoking/Psychosocial Hx Smoking History: Never smoked Have you smoked in the past 12 months: No If you are a former smoker, when did you quit?: 15 YEARS AGO Hx Alcohol Use: No Drug/Substance Use Hx: No Substance Use Type: None Hx Substance Use Treatment: No Suture Removal/Wound Check PE - Physical Exam Laceration/Wound Check Symptoms: reports: None Current Severity Level: None Maximum Severity Level: None Pain Localization: None *Review of Systems - Review of Systems Able to Perform ROS?: Yes Constitutional: Yes: See HPI. No: Symptoms Reported, Fever HEENTM: No: Symptoms Reported Respiratory: Yes: Symptoms reported, See HPI, Cough Integumentary: Yes: Symptoms Reported All Other Systems: Reviewed and Negative *Physical Exam - Vital Signs Last Vital Signs Temp Pulse Resp BP Pulse Ox 98.0 F 76 16 160/70 98 03/13/18 12:18 03/13/18 12:18 03/13/18 12:18 03/13/18 12:18 03/13/18 12:18 - Physical Exam General Appearance: Yes: Nourished, Appropriately Dressed HEENT: positive: [place], Normal ENT Inspection, TMs Normal, Pharynx Normal Neck: negative: Tender Gastrointestinal/Abdominal: positive: Soft Extremity: positive: Normal Capillary Refill, Normal Range of Motion, Tender Integumentary: positive: Normal Color, Dry, Warm, Other 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 Revealing only 6 intact sutures. Wound is not well approximated due to the contused nature of the wound. Steri-Strips are applied and patient instructed to continue soaking until eschar and scabbing resolves *DC/Admit/Observation/Transfer Diagnosis at time of Disposition: Visit for suture removal - Discharge Dispostion Disposition: HOME Condition at time of disposition: Stable Decision to Admit order: No - Referrals Referrals: Alfredo Welsh MD [Primary Care Provider] - - Patient Instructions Printed Discharge Instructions: DI for Suture Removal Additional Instructions: Rest, avoid strenuous activity or exercise until scabbing is completely resolved May use bacitracin ointment until scabbing is gone After may use vitamin E oil, poke hole in vitamin E capsule and use oil from the capsule on wound- may help resolve some of the discoloration of the scar Keep wound out of the sun for at least one year to avoid darkening of scar tissue - Post Discharge Activity
== END 2018-03-13 13:25 | disposition home or self-care (01) ==
LOC: JERFT 12:15
DX: Z48.02 Encounter for removal of sutures (principal)
CPT/HCPCS: 99281-25

== ENCOUNTER 2021-01-07 21:00 | Emergency (ER) | payer BC, OTHER ==
[2021-01-07 21:09] VITALS: BMI 36.6
[2021-01-07] MEDS ORDERED: SODIUM CHLORIDE 0.9% 500 ML INFUS.BAG IV ONE (21:24)
[2021-01-07] MEDS ORDERED: ONDANSETRON 4 MG/2 ML VIAL IVPUSH ONE (21:24)
[2021-01-07] MEDS ORDERED: ONDANSETRON 4 MG/2 ML VIAL ONE (21:26)
[2021-01-07] MEDS ORDERED: MAG HYDROX/AL HYDROX/SIMETH 30 ML UNIT-DOSE CUP PO ONE (21:57)
[2021-01-07] MEDS ORDERED: FAMOTIDINE 20 MG/50 ML IVPB 20 MG/50 ML MG IVPB ONE ×2 (21:57→22:17)
[2021-01-07] MEDS ORDERED: MAG HYDROX/AL HYDROX/SIMETH 30 ML UNIT-DOSE CUP ONE (22:12)
[2021-01-07 22:15] LABS: BASO % 0.8 % (0-2.0); HEMATOCRIT 37.4 % (32.4-45.2); HEMOGLOBIN 12.7 GM/dL (10.7-15.3); LYMPH % 11.1 % (8-40); MCH 30.2 pg (25.7-33.7); MCHC 33.9 g/dl (32.0-36.0); MEAN PLT VOLUME 7.6 fl (7.5-11.1); MONO % 4.6 % (3.8-10.2); NEUT % 83.5 % (42.8-82.8); PLATELET COUNT 382 10^3/uL (134-434); RDW 14.4 % (11.6-15.6); WHITE BLOOD COUNT 12.6 K/mm3 (4.0-10.0)
[2021-01-07 22:34] LABS: CHLORIDE 95 mmol/L (98-107); SODIUM 136 mmol/L (136-145)
[2021-01-07 22:37] LABS: ANION GAP 9 MMOL/L (8-16); CALCIUM 9.1 mg/dL (8.5-10.1); CO2 32 mmol/L (21-32); GLUCOSE,RANDOM 149 mg/dL (74-106); LIPASE 95 U/L (73-393); MAGNESIUM 2.6 mg/dL (1.8-2.4)
[2021-01-07 22:40] LABS: CREATININE 1.1 mg/dL (0.55-1.3); PHOSPHOROUS 2.9 mg/dL (2.5-4.9); SGOT/AST 25 U/L (15-37); SGPT/ALT 28 U/L (13-61)
[2021-01-07 22:41] LABS: BILIRUBIN,TOTAL 0.4 mg/dL (0.2-1)
[2021-01-07 22:42] LABS: TOT PROT 8.3 g/dl (6.4-8.2)
[2021-01-07 22:43] LABS: ALK PHOS 105 U/L (45-117)
[2021-01-07] MEDS ORDERED: POTASSIUM CHLORIDE TABS 20 MEQ TABLET.ER (FP) PO ONE (22:57)
[2021-01-07] MEDS ORDERED: POTASSIUM CHLORIDE ORAL LIQUID 20 MEQ/15 ML ONE (23:10)
[2021-01-08 01:01] VITALS: BP 146/70; PULSE 107; TEMP 99.6
[2021-01-08] MEDS ORDERED: ONDANSETRON *ODT* 4 MG TABLET SL ONE (01:09)
[2021-01-08] MEDS ORDERED: ONDANSETRON *ODT* 4 MG TABLET ONE (01:14)
== END 2021-01-08 01:41 | disposition home or self-care (01) ==
LOC: JER 21:00
PROC: 3E033GC Introduction of Other Therapeutic Substance into Peripheral Vein, Percutaneous Approach (ICD-10-PCS; principal; 2021-01-07)
DX: A08.4 Viral intestinal infection, unspecified (principal)
CPT/HCPCS: 36415; 71045-TC-FY; 80053; 82550; 83690; 83735; 84100; 84484; 85025; 93005; 93010; 99285-25; C9803; Q0162; U0003; U0005

== ENCOUNTER 2021-01-16 01:21 | Inpatient (IN) | payer BC ==
[2021-01-16] MEDS ORDERED: METOCLOPRAMIDE HCL INJECTION 10 MG/2 ML VIAL IVPB ONE (02:09)
[2021-01-16] MEDS ORDERED: LACTATED RINGERS SOLUTION 1000 ML INFUS.BAG IV ONE (02:09)
[2021-01-16] MEDS ORDERED: FAMOTIDINE 20 MG/50 ML IVPB 20 MG/50 ML MG IVPB ONE ×2 (02:10→02:17)
[2021-01-16] MEDS ORDERED: ACETAMINOPHEN 1000 MG/100 ML VIAL (NON FORMULARY) IVPB ONE ×2 (02:10→15:55)
[2021-01-16] MEDS ORDERED: METOCLOPRAMIDE HCL INJECTION 10 MG/2 ML VIAL ONE (02:16)
[2021-01-16] MEDS ORDERED: ACETAMINOPHEN INJECTION 100 ML IVPB ONE (02:17)
[2021-01-16 02:38] LABS: HEMOGLOBIN 13.7 GM/dL (10.7-15.3); MCH 29.6 pg (25.7-33.7); MCHC 33.3 g/dl (32.0-36.0); MEAN CELL VOLUME 88.7 fl (80-96); MEAN PLT VOLUME 7.7 fl (7.5-11.1); PLATELET COUNT 474 10^3/uL (134-434); RBC 4.62 M/mm3 (3.60-5.2); RDW 13.8 % (11.6-15.6); WHITE BLOOD COUNT 14.9 K/mm3 (4.0-10.0)
[2021-01-16 02:44] LABS: INR 0.97 (0.83-1.09); PROTHROMBIN TIME (PATIENT) 11.8 SEC (9.7-13.0)
[2021-01-16 02:47] LABS: ACTIVATED PTT 27.8 SECONDS (25.2-36.5)
[2021-01-16 03:04] LABS: CHLORIDE 91 mmol/L (98-107); SODIUM 134 mmol/L (136-145)
[2021-01-16 03:06] LABS: ALBUMIN 3.9 g/dl (3.4-5.0); CALCIUM 9.6 mg/dL (8.5-10.1)
[2021-01-16 03:07] LABS: ANION GAP 15 MMOL/L (8-16); CO2 28 mmol/L (21-32); GLUCOSE,RANDOM 154 mg/dL (74-106); MAGNESIUM 3.6 mg/dL (1.8-2.4)
[2021-01-16 03:10] LABS: CREATININE 1.6 mg/dL (0.55-1.3); SGOT/AST 17 U/L (15-37); SGPT/ALT 16 U/L (13-61)
[2021-01-16 03:11] LABS: BILIRUBIN,TOTAL 0.7 mg/dL (0.2-1); TOT PROT 8.6 g/dl (6.4-8.2)
[2021-01-16 03:13] LABS: ALK PHOS 91 U/L (45-117)
[2021-01-16 03:18] LABS: ANISOCYTOSIS 0; MACROCYTOSIS 0; PLATELET ESTIMATE NORMAL
[2021-01-16 03:25] LABS: LACTIC ACID 2.1 mmol/L (0.4-2.0)
[2021-01-16 03:33] LABS: BLOOD UREA NITROGEN 50.7 mg/dL (7-18); LIPASE 1321 U/L (73-393)
[2021-01-16 04:48] LABS: CHOLESTEROL 195 mg/dL (50-200)
[2021-01-16 04:49] LABS: TRIGLYCERIDES 162 mg/dL (0-150)
[2021-01-16 04:50] LABS: LDL CHOLESTEROL (ONLY SJRH) 122 mg/dL (5-100)
[2021-01-16 04:51] LABS: HDL CHOLESTEROL 40 mg/dL (40-60)
[2021-01-16 06:40] LABS: URINE COLOR YELLOW
[2021-01-16 06:41] LABS: URINE APPEARANCE CLOUDY; URINE BILIRUBIN NEGATIVE (NEGATIVE); URINE GLUCOSE (UA) NEGATIVE (NEGATIVE); URINE KETONE NEGATIVE (NEGATIVE)
[2021-01-16 06:42] LABS: PH,URINE 6.5 (5.0-8.0); URINE LEUK ESTERASE NEGATIVE (NEGATIVE); URINE NITRITE NEGATIVE (NEGATIVE); URINE PROTEIN TRACE (NEGATIVE)
[2021-01-16 06:45] LABS: EPI CELLS 71.1 /uL (0-25.1); URINE BACTERIA 316.8 /uL (0-1359); URINE RBC 37.2 /uL (0-23.9); URINE WBC 9.6 /uL (0-25.8)
[2021-01-16] MEDS ORDERED: SODIUM CHLORIDE 1,000 ML IV STA ×2 (09:53→15:43)
[2021-01-16 11:44] LABS: BLOOD UREA NITROGEN 51.2 mg/dL (7-18); CALCIUM 9.6 mg/dL (8.5-10.1)
[2021-01-16 11:47] LABS: CREATININE 1.7 mg/dL (0.55-1.3)
[2021-01-16] MEDS ORDERED: ONDANSETRON 4 MG/2 ML VIAL IVPUSH PRN ×2 (13:25→15:43)
[2021-01-16] MEDS ORDERED: LIDOCAINE HCL/PF 2% SDV 5ML VIAL ONE (13:50)
[2021-01-16] MEDS ORDERED: SUCCINYLCHOLINE CHLORIDE 200 MG/10 ML SYRINGE ONE (13:51)
[2021-01-16] MEDS ORDERED: ROCURONIUM BROMIDE 50 MG/5 ML SYRINGE ONE (13:51)
[2021-01-16] MEDS ORDERED: PROPOFOL 20 ML ONE ×2 (13:51)
[2021-01-16] MEDS ORDERED: MIDAZOLAM HCL 2 MG/2 ML SINGLE DOSE VIAL ONE (13:51)
[2021-01-16] MEDS ORDERED: LIDOCAINE HCL 1%, 10 MG/ML (20ML VIAL) ONE (14:23)
[2021-01-16] MEDS ORDERED: ceFAZolin SODIUM 1 GM VIAL ONE (14:28)
[2021-01-16] MEDS ORDERED: ceFAZolin SODIUM 1 GM VIAL IVPB ONE (14:30)
[2021-01-16] MEDS ORDERED: ONDANSETRON 4 MG/2 ML VIAL ONE (14:39)
[2021-01-16] MEDS ORDERED: GLYCOPYRROLATE 0.2 MG/1 ML VIAL ONE (14:56)
[2021-01-16] MEDS ORDERED: NEOSTIGMINE METHYLSULFATE 0.5 MG/1 ML - 10 ML MDV ONE (14:57)
[2021-01-16] MEDS ORDERED: BUPIVACAINE HCL/PF 0.5% (5MG/ML) 10 ML VIAL NR ONE (15:10)
[2021-01-16] MEDS ORDERED: LIDOCAINE HCL 1%, 10 MG/ML (20ML VIAL) NR ONE (15:10)
[2021-01-16] MEDS ORDERED: MORPHINE SULFATE 2 MG/ML VIAL IVPUSH PRN ×2 (15:28→15:59)
[2021-01-16] MEDS ORDERED: SODIUM CHLORIDE 0.9% 500 ML INFUS.BAG IV ONE (15:43)
[2021-01-16] MEDS ORDERED: morphine CARPU-JECT 2 MG/1 ML DISP.SYRIN IVPUSH PRN (15:43)
[2021-01-16] MEDS: ACETAMINOPHEN 1000 MG/100 ML VIAL (NON FORMULARY) IVPB PRN (20:42)
[2021-01-17 06:30] VITALS: BMI 36.5
[2021-01-17] MEDS: FAMOTIDINE 20 MG/50 ML IVPB 20 MG/50 ML MG IVPB SCH ×2 (09:31→21:18)
[2021-01-17] MEDS: DEXTROSE 5%-NORMAL SALINE 1,000 ML IV SCH (12:17)
[2021-01-17] MEDS: ACETAMINOPHEN 1000 MG/100 ML VIAL (NON FORMULARY) IVPB PRN (12:23)
[2021-01-17 16:16] LABS: BASO % 0.5 % (0-2.0); EOS % 1.1 % (0-4.5); HEMATOCRIT 30.9 % (32.4-45.2); HEMOGLOBIN 10.4 GM/dL (10.7-15.3); LYMPH % 17.4 % (8-40); MCH 29.9 pg (25.7-33.7); MCHC 33.7 g/dl (32.0-36.0); MEAN CELL VOLUME 88.8 fl (80-96); MEAN PLT VOLUME 7.3 fl (7.5-11.1); MONO % 7.5 % (3.8-10.2); NEUT % 73.5 % (42.8-82.8); PLATELET COUNT 383 10^3/uL (134-434); RBC 3.48 M/mm3 (3.60-5.2); RDW 14.2 % (11.6-15.6); WHITE BLOOD COUNT 11.4 K/mm3 (4.0-10.0)
[2021-01-17 16:29] LABS: CALCIUM 8.2 mg/dL (8.5-10.1)
[2021-01-17 16:31] LABS: MAGNESIUM 2.5 mg/dL (1.8-2.4)
[2021-01-17 16:33] LABS: CREATININE 0.8 mg/dL (0.55-1.3)
[2021-01-17 16:34] LABS: BLOOD UREA NITROGEN 21.6 mg/dL (7-18); PHOSPHOROUS 3.2 mg/dL (2.5-4.9)
[2021-01-18] MEDS: DEXTROSE 5%-NORMAL SALINE 1,000 ML IV SCH (03:15)
[2021-01-18] MEDS ORDERED: oxyCODONE HCL 5 MG TABLET PO PRN ×2 (05:34→05:35)
[2021-01-18] MEDS ORDERED: ACETAMINOPHEN 500 MG TABLET (FP) PO PRN (05:35)
[2021-01-18] MEDS ORDERED: POTASSIUM CHLORIDE ORAL LIQUID 20 MEQ/15 ML PO ONE (05:36)
[2021-01-18 09:06] LABS: BASO % 0.6 % (0-2.0); EOS % 1.9 % (0-4.5); HEMATOCRIT 30.4 % (32.4-45.2); HEMOGLOBIN 10.3 GM/dL (10.7-15.3); LYMPH % 22.4 % (8-40); MCH 30.3 pg (25.7-33.7); MEAN CELL VOLUME 89.2 fl (80-96); MEAN PLT VOLUME 7.4 fl (7.5-11.1); MONO % 7.7 % (3.8-10.2); NEUT % 67.4 % (42.8-82.8); PLATELET COUNT 367 10^3/uL (134-434); RDW 13.8 % (11.6-15.6); WHITE BLOOD COUNT 11.3 K/mm3 (4.0-10.0)
[2021-01-18] MEDS: FAMOTIDINE 20 MG/50 ML IVPB 20 MG/50 ML MG IVPB SCH ×2 (09:22→21:21)
[2021-01-18 09:28] LABS: BLOOD UREA NITROGEN 13.9 mg/dL (7-18); CALCIUM 8.2 mg/dL (8.5-10.1)
[2021-01-18 09:32] LABS: CREATININE 0.7 mg/dL (0.55-1.3)
[2021-01-18] MEDS: ENOXAPARIN NA (PORCINE) 40 MG/0.4 ML DISP.SYRIN SQ SCH (21:25)
[2021-01-19] MEDS: FAMOTIDINE 20 MG/50 ML IVPB 20 MG/50 ML MG IVPB SCH (10:07)
[2021-01-19] MEDS: ENOXAPARIN NA (PORCINE) 40 MG/0.4 ML DISP.SYRIN SQ SCH (10:07)
[2021-01-19 13:53] VITALS: BP 135/84; PULSE 70; TEMP 98.3
== END 2021-01-19 16:55 | disposition home or self-care (01) | DRG 350 ==
LOC: JER 01:21 → JERBED 05:37 → J8W 20:35
PROVIDERS: ADMIT Internal Medicine; ATTEND Internal Medicine
PROC: 0YQ50ZZ Repair Right Inguinal Region, Open Approach (ICD-10-PCS; principal; 2021-01-16 11:00)
DX: K40.30 Unilateral inguinal hernia, with obstruction, without gangrene, not specified as recurrent (principal); K85.90 Acute pancreatitis without necrosis or infection, unspecified; N17.9 Acute kidney failure, unspecified; K56.609 Unspecified intestinal obstruction, unspecified as to partial versus complete obstruction; R73.03 Prediabetes; F32.9 Major depressive disorder, single episode, unspecified; I25.10 Atherosclerotic heart disease of native coronary artery without angina pectoris; I44.7 Left bundle-branch block, unspecified; G43.909 Migraine, unspecified, not intractable, without status migrainosus
CPT/HCPCS: 36415; 71045-TC-FY; 74174-TC; 80048; 80053; 80061; 81003; 82550; 83605; 83690; 83735; 84100; 84484; 85025; 85610; 85730; 87086; 93005; 93010; 94760; 99285-25; C9803; J0131; U0003; U0005